=== PATIENT | female | born 1955 | race Caucasian/White ===

== ENCOUNTER 2019-08-07 01:23 | Observation (INO) | payer OTHER, SELFPAY ==
[2019-08-07] VITALS (8 sets, daily range): BP systolic 130–183; BP diastolic 63–90; PULSE 65–96; RESP 14–23; TEMP 36.6–36.8; O2SAT 97–100; BMI 28.3
--- NOTE | ~2019-08-07 | XR_ITS ---
XR ribs LT 2V w CXR 2V DATE: 08/07/2019 02:28 INDICATION: Anterior lower left rib pain TECHNIQUE: PA and lateral chest. 3 views of the left ribs. COMPARISON: 05/03/2019 2 view chest FINDINGS: Diffuse osteopenia. There is a subtle slightly displaced anterior left seventh rib fracture which appears recent. Degenerative spurring of the thoracic spine. Normal heart size. No hilar or mediastinal enlargement. There is minimal atelectasis at the lung bases. The lungs otherwise are clear of infiltrate or consol idation. No pleural effusion or pulmonary vascular congestion or pneumothorax. IMPRESSION: Recent minimally displaced anterior left seventh rib fracture Minimal atelectasis at the lung bases Diffuse osteopenia Reviewed, dictated and finalized at location A.
--- NOTE | 2019-08-07 01:41 | ED_ITS ---
I attest that this documentation has been prepared under the direction and in the presence of Kody Starks MD. Micky Lomax Scribe 08/07/19;01:41 HPI - General Adult General Chief complaint: Abdominal Pain Stated complaint: RUQ PAIN/SHOULDER PAIN Time Seen by Provider: 08/07/19 01:29 Related Data Home Medications Medication Instructions Recorded Confirmed valacyclovir 05/03/19 Allergies Allergy/AdvReac Type Severity Reaction Status Date / Time No Known Allergies Allergy Unknown Verified 08/07/19 01:34 [facility] Social History Social History Smoking status: Never smoker Second hand tobacco smoke exposure: Yes Alcohol intake: never Course Vital Signs Vital signs: Vital Signs Temperature 36.8 C 08/07/19 01:31 Pulse Rate 91 08/07/19 01:31 Respiratory Rate 23 H 08/07/19 01:31 Blood Pressure 183/90 H 08/07/19 01:31 Pulse Oximetry 100 08/07/19 01:31 Temperature 36.8 C 08/07/19 01:31 Pulse Rate 91 08/07/19 01:31 Respiratory Rate 23 H 08/07/19 01:31 Blood Pressure 183/90 H 08/07/19 01:31 Pulse Oximetry 100 08/07/19 01:31 Medical Decision Making Vital Signs Vital Signs: Vital Signs Temperature 36.8 C 08/07/19 01:31 Pulse Rate 91 08/07/19 01:31 Respiratory Rate 23 H 08/07/19 01:31 Blood Pressure 183/90 H 08/07/19 01:31 Pulse Oximetry 100 08/07/19 01:31 Temperature 36.8 C 08/07/19 01:31 Pulse Rate 91 08/07/19 01:31 Respiratory Rate 23 H 08/07/19 01:31 Blood Pressure 183/90 H 08/07/19 01:31 Pulse Oximetry 100 08/07/19 01:31 Discharge Plan Discharge Prescriptions: No Action valacyclovir 500 mg tablet RF: 0 azithromycin [Zithromax Z-Con] 250 mg tablet 250 mg PO DAILY 5 Days Qty: 6 RF: 0 albuterol sulfate [Ventolin HFA] 90 mcg/actuation HFA aerosol inhaler 2 puff INHALATION QID PRN (Reason: shortness of breath or wheezing) Qty: 18 RF: 0 prednisone 20 mg tablet 40 mg PO DAILY 5 Days Qty: 10 RF: 0
--- NOTE | 2019-08-07 01:51 | ED.CHESTPAIN ---
HPI - Chest Pain General Chief Complaint: Abdominal Pain Stated Complaint: RUQ PAIN/SHOULDER PAIN Time Seen by Provider: 08/07/19 01:29 Source: patient and RN notes reviewed Mode of arrival: ambulatory Limitations: no limitations History of Present Illness HPI narrative: Pt is a 64 y/o female who presents to the ED with c/o lt lower chest pain starting 2 days ago. She notes that she was really stretching to bend over and pick something up inside of her washing machine 2 days ago, when she felt a pop in her lt lower chest. Pt states that she has had pain in her lt lower chest ever since. She notes that her pain worsened into a constant pain around 22:30 yesterday. Pt describes her pain as burning, and states that her pain has begun to radiate into her lt shoulder and lt upper back. She notes that her pain is aggravated with deep breathing. Pt currently denies any ABD pain, fever, or chills. She states that she took Ibuprofen for her pain earlier this evening. Pt notes having a FHx of CAD and DVT. MD complaint: chest pain Onset (ago): day(s) (2) Timing of current episode: constant Onset: during exertion Pain location: left chest Pain radiation: back (lt upper back) and left shoulder Quality: burning Exacerbating factors: other (deep breathing) Associated symptoms: other (none) Treatment prior to arrival: other (Ibuprofen) Related Data Home Medications Medication Instructions Recorded Confirmed valacyclovir 05/03/19 Allergies Allergy/AdvReac Type Severity Reaction Status Date / Time No Known Allergies Allergy Unknown Verified 08/07/19 01:34 Review of Systems Review of Systems: All systems reviewed & are unremarkable except as noted in HPI and below Constitutional: Constitutional: Denies chills and Denies fever(s) Cardiovascular: Cardiovascular: Reports chest pain (lt lower chest pain radiating into lt shoulder and lt upper back) Gastrointestinal: Gastrointestinal: Denies abdominal pain PMFSH Past Medical History Medical History (Updated 08/07/19 @ 05:02 by Kody Starks MD) Hemorrhoids Hypertension Surgical History Surgical History No significant past surgical history Family History Family History (Updated 08/07/19 @ 04:52 by Alexandra Lagunas RN) Sibling DVT (deep venous thrombosis) Acute myocardial infarction Father DVT (deep venous thrombosis) Acute myocardial infarction Mother Lung cancer Social History Social History Smoking status: Never smoker Second hand tobacco smoke exposure: Yes Alcohol intake: never Exam Narrative: Exam Narrative: GENERAL: Well-appearing, well-nourished, and in no acute distress. HEAD: Normocephalic, atraumatic. ENT: Mucous membranes moist. CHEST: Clear to auscultation. No respiratory distress. Tender to palpation anterior chest wall inferior to the left breast. HEART: Regular rate and rhythm. No murmur heard. Normal peripheral pulses. ABDOMEN: Soft, nontender, nondistended, normal active bowel sounds. Back: No midline or paraspinal tenderness with palpation to thoracic region back. EXTREMITIES: Normal range of motion. No edema. SKIN: Warm, dry, no rash. NEURO: Alert and oriented x3. Course Course Emergency Course: Informed of results. Scant improvement in pain with morphine and no change with nitro. Discussed with Dr. Rangel, admit to [facility] for repeat trop at 3 and 6 hours. BP improved w/o intervention. Vital Signs Vital signs: Vital Signs Temperature 98.3 F 08/07/19 01:31 Pulse Rate 91 08/07/19 01:31 Respiratory Rate 23 H 08/07/19 01:31 Blood Pressure 183/90 H 08/07/19 01:31 Pulse Oximetry 100 08/07/19 01:31 Temperature 97.8 F 08/07/19 04:45 Pulse Rate 96 08/07/19 04:45 Respiratory Rate 20 08/07/19 04:45 Blood Pressure 151/76 H 08/07/19 04:45 Pulse Oximetry 97 08/07/19 04:45 MDM - Chest Pain Lab Data
[2019-08-07] MEDS: MORPHINE SULFATE 4 MG/ML INJ IV PUSH (02:03)
--- NOTE | 2019-08-07 02:05 | PC.NURSE ---
pt down to xray
[2019-08-07 02:11] LABS: Basophils Percent Auto 0.2 % (0.2-1.2); Eosinophils Absolute Auto 0.3 K/mm3 (0-0.3); Eosinophils Percent Auto 2.9 % (0-4.4); Hematocrit 41.6 % (37.0-47.0); Hemoglobin 13.3 g/dL (12.0-15.0); Immature Granulocyte Absolute 0.03 K/mm3 (0.00-0.031); Immature Granulocyte Percent A 0.3 % (0-0.5); Lymphocytes Absolute Auto 3.04 K/mm3 (0.9-3.2); Lymphocytes Percent Auto 34.8 % (18.3-44.2); Mean Corpuscular Hemoglobin 30.1 pg (26-34); Mean Corpuscular Volume 94.1 fl (80-100); Mean Platelet Volume 11.1 fl (7.4-10.4); Monocytes Absolute Auto 0.6 K/mm3 (0.1-0.6); Monocytes Percent Auto 6.8 % (2.6-8.5); Neutrophils Absolute Auto 4.8 K/mm3 (1.3-6.7); Platelet Count Result 229 k/mm3 (150-375); Red Blood Count 4.42 M/mm3 (4.2-5.4); Red Cell Distribution Width 13.2 % (11.5-14.5); White Blood Count 8.7 K/mm3 (4.5-10.0)
--- NOTE | 2019-08-07 02:19 | ECG_ITS ---
Measurements Intervals [place] Rate: 88 P: 55 SD: 151 QRS: 46 QRSD: 97 T: 42 QT: 362 QTc: 440 Interpretive Statements SINUS RHYTHM BORDERLINE ST ABNORMALITY- ANTEROLATERAL LEADS BASELINE ARTIFACT- V4-V5 BORDERLINE ECG Electronically Signed On 08-07-2019 7:09:37 CDT by Josias Ceballos D.O.
[2019-08-07 02:38] LABS: Prothrombin Time 12.5 Seconds (11.1-14.7)
[2019-08-07 02:39] LABS: Partial Thromboplastin Time 31.4 SECONDS (22.3-36.8)
[2019-08-07 02:41] LABS: Blood Urea Nitrogen 16 mg/dL (7-17); Calcium 9.5 mg/dL (8.4-10.2); Carbon Dioxide 28 mmol/L (22-30); Chloride 104 mmol/L (98-107); D Dimer 0.35 ug/mL (<0.48); Estimated Glomerular Filt Rate > 60; Glucose 102 mg/dL (65-105); Potassium 3.9 mmol/L (3.4-5.0); Sodium 137 mmol/L (137-145)
[2019-08-07 02:53] LABS: Troponin I < 0.012 ng/mL (0.000-0.034)
[2019-08-07] MEDS: NITROGLYCERIN SL 0.4 MG TABLET SUBLINGUAL (03:09)
[2019-08-07] MEDS: ASPIRIN 81 MG CHEWABLE TABLET 324 MG PO (03:48)
--- NOTE | 2019-08-07 04:56 | ECG_ITS ---
Measurements Intervals [place] Rate: 75 P: -1 AK: 165 QRS: 61 QRSD: 91 T: 46 QT: 383 QTc: 429 Interpretive Statements SINUS RHYTHM BASELINE ARTIFACT- I, II, III, AVR, AVL, AVF NORMAL ECG Electronically Signed On 08-07-2019 7:09:09 CDT by Josias Ceballos D.O.
[2019-08-07 06:00] LABS: Troponin I < 0.012 ng/mL (0.000-0.034)
--- NOTE | 2019-08-07 07:56 | ECG_ITS ---
Measurements Intervals [place] Rate: 67 P: 7 RI: 177 QRS: 58 QRSD: 91 T: 41 QT: 393 QTc: 418 Interpretive Statements SINUS RHYTHM NORMAL ECG Electronically Signed On 08-07-2019 8:19:32 CDT by Josias Ceballos D.O.
[2019-08-07 08:34] LABS: Troponin I < 0.012 ng/mL (0.000-0.034)
--- NOTE | 2019-08-07 12:01 | PM.SD ---
Same Day Admit/Disch: HPI History of Present Illness Chief complaint: atypical chest shoulder pain rib fracture <Mimi Martinez, SOCIAL SCIENCE RESEARCH ASSISTANT - Last Filed: 08/07/19 16:33> Narrative: Arianna Hillman is a 64 year old female that presented to the emergency room for evaluation of upper left posterior shoulder discomfort. On Monday she was leaning over her deep washer when she felt a pop and had some discomfort at the left lower ribs. She took some ibuprofen and this discomfort improved. Approximately 10:30 p.m. yesterday evening she began to experience upper left posterior shoulder and lower rib cage discomfort. The discomfort was worse with movement as well as deep inspiration. She described it as a sharp discomfort. She denied any associated shortness of breath or lightheadedness. She tried to get comfortable in bed but after about 2-1/2 hours her suggested that she come to the emergency room for evaluation. Troponin negative x3. Initial EKG had some nonspecific ST depression which resolved in subsequent EKGs. She was given nitroglycerin as well as morphine in the emergency room without any significant improvement. She states that approximately 4:00 a.m. she went to sleep on her right side and the discomfort completely resolved and was not present at the time of our interview. She did still has some tenderness chest x-ray revealed recent minimally displaced anterior left 7th rib fracture. Minimal atelectasis left lung base. Diffuse osteopenia. No further cardiac recommendations. She is discharged home in stable and improved condition. <Mimi Martinez, SOCIAL SCIENCE RESEARCH ASSISTANT - Last Filed: 08/07/19 16:33> Attestation by Dr. Rangel: Patient was admitted with left lower chest discomfort after hearing a pop , leaning over a washing machine as described by LONG Martinez. She also had some discomfort of the left posterior shoulder and upper back area. The emergency room doctor was concerned of left the depression. She few no risk factors for CAD except for family history. Has been having some trouble with blood pressure control recently.Otherwise she has been able to exert with no particular problems. Physical exam: Blood pressure, which was initially high, had improved. Patient no distress. No carotid bruits. Heart is regular rate and rhythm no murmurs or gallops, lungs clear, abdomen soft and nontender with no organomegaly and extremities with no edema. Distal pulses are intact. She does have chest wall tenderness over the right lower chest area. Laboratory data: EKG shows sinus rhythm with right consider are nonspecific ST changes laterally. Chest x-ray and rib detail as above, fracture of the anterior 7th rib noted, as well as osteopenia. Labs reviewed Impression: Chest pain secondary to rib fracture, no evidence of cardiac issue. Nonspecific EKG changes Osteopenia High blood pressure reading Recommendations: Tylenol and Advil , chest binder p.r.n. Follow-up with Dr. Tiwari to check blood pressure and see if patient needs further evaluation and treatment of osteopenia / osteoporosis. Nandini Rangel MD <Heather Rangel MD - Last Filed: 08/07/19 18:03> [facility] Past Medical History Medical History: Medical History (Updated 08/07/19 @ 16:24 by Mimi Martinez APRN) Hemorrhoids <Mimi Martinez APRN - Last Filed: 08/07/19 16:33> Surgical History Surgical History: Surgical History No significant past surgical history <Mimi Martinez APRN - Last Filed: 08/07/19 16:33> Family History Family History: Family History Sibling DVT (deep venous thrombosis) Acute myocardial infarction Father DVT (deep venous thrombosis) Acute myocardial infarction Mother Lung cancer <Mimi Martinez APRN - Last Filed: 08/07/19 16:33> Social History Social History: Social History (Reviewed 08/07/19 @ 16:24 by Sal Vásquez
== END 2019-08-07 12:25 | disposition home or self-care (01) ==
LOC: ANHED 01:29 → ANHIMU 04:08 → ANHCPC 07:58
PROVIDERS: Admitting Provider Internal Medicine Cardiovascular Disease; Emergency Provider Emergency Medicine; PCP Family Medicine; Visit Provider Internal Medicine Cardiovascular Disease
DX: S22.32XA Fracture of one rib, left side, initial encounter for closed fracture (principal); X50.1XXA Overexertion from prolonged static or awkward postures, initial encounter; Y93.E2 Activity, laundry; R07.89 Other chest pain; M85.88 Other specified disorders of bone density and structure, other site; I10 Essential (primary) hypertension; Z82.49 Family history of ischemic heart disease and other diseases of the circulatory system
CPT/HCPCS: 36415; 71045; 71101; 80048; 84484; 85025; 85380; 85610; 85730; 93005; 96374; 99285; A9270; G0378; J2270

== ENCOUNTER → 2020-01-31 10:06 | Outpatient (CLI) | payer OTHER, SELFPAY ==
--- NOTE | ~2020-01-31 | XR_ITS ---
EXAMINATION: XR knee LT 3V DATE: 01/31/2020 10:45 INDICATION: Left knee pain. TECHNIQUE: 3 views of left knee were obtained. COMPARISON: None. FINDINGS: Bone alignment is normal. No fracture. There is moderate osteoarthritis of medial compartme nt and mild osteoarthritis of lateral and patellofemoral compartments. There is a small knee joint ef fusion. There is a 3 mm loose body in the knee joint. Small loose bodies posterior to the knee may be in a Jessica's cyst. IMPRESSION: 1. Moderate left knee osteoarthritis. 2. Small left knee joint effusion with loose body. Reviewed, dictated and finalized at location A.
== END ==
PROVIDERS: PCP Family Medicine; Visit Provider Physician Assistant
DX: M25.462 Effusion, left knee (principal); M17.12 Unilateral primary osteoarthritis, left knee
CPT/HCPCS: 73562

== ENCOUNTER 2022-09-28 01:45 | Day surgery (SDC) | payer MEDICARE, SELFPAY ==
[2022-09-15 13:45] VITALS: BMI 26.6
--- NOTE | 2022-09-27 14:23 | PM.HPGS ---
History of Present Illness History of Present Illness Consent: Risks, benefits, and alternatives have been discussed and questions answered. Patient agrees to proceed with procedure. Chief complaint: neoplasm screening Narrative: Arianna Hillman is a 67 year old female referred for colon cancer screening. Review of Systems Review of Systems: All systems reviewed & are unremarkable except as noted in HPI and below PMFSH Past Medical History Medical History Hemorrhoids Surgical History Surgical History No significant past surgical history Family History Family History Sibling DVT (deep venous thrombosis) Acute myocardial infarction Father DVT (deep venous thrombosis) Acute myocardial infarction Mother Lung cancer Social History Social History Smoking status: Never smoker Second hand tobacco smoke exposure: No Alcohol intake: current Alcohol use details: rarely Substance use: never Substance use type: does not use Lack of Transportation: No Lack of Food: Never True Current Housing: I Have Housing Concerned About Future Housing: No Difficulty Paying Gas/Electric Bills: No Difficulty Paying for Meds: No Currently Unemployed: No Education: Bachelor's Degree Difficulty w/ Childcare or Family Care: No Living arrangements: with family Spiritual care concerns: No Meds Home Medications and Allergies Home Medications Medication Instructions Recorded Confirmed Type valacyclovir 500 mg tablet 500 mg PO DAILY 05/03/19 09/15/22 History antiarthritic combination no.2 900 900 mg PO DAILY 11/11/20 09/15/22 History mg tablet (glucosamine-chondroitin) cholecalciferol (vitamin D3) 50 50 mcg PO DAILY 11/11/20 09/15/22 History mcg (2,000 unit) capsule Allergies Allergy/AdvReac Type Severity Reaction Status Date / Time No Known Allergies Allergy Unknown Verified 09/28/22 06:25 Exam Const: General: alert Orientation/consciousness: patient oriented x3 Resp: Auscultation: clear to auscultation bilaterally Cardio: Rhythm: regular rhythm GI: GI Palp: Yes Soft to palpation and No Tenderness to palpation present (GI) Neuro: General: patient oriented x3 Assessment and Plan Assessment and plan (1) Colon cancer screening: Code(s): Z12.11 - Encounter for screening for malignant neoplasm of colon Status: Acute Assessment and Plan: Colonoscopy with possible biopsy or polypectomy or cautery or injection of substances.
[2022-09-28 06:31] VITALS: BP 152/81; PULSE 80; RESP 16; TEMP 36.1; O2SAT 99
[2022-09-28] MEDS: LACTATED RINGERS 1,000 ML 150 ML IV CONT (06:37)
--- NOTE | 2022-09-28 07:05 | WPDANESEPPF ---
Anes - Initial Pre Proc Eval Procedure: Operation Date: 09/28/22 07:30 Proposed Procedures p Screening Colonoscopy - Miguel Pandey MD Date/Time: 09/28/22 07:05 Surgeon: Miguel Pandey MD Pre Op Diagnosis: neoplasm screening Patient Data Age: 67 Gender: F Height: 1.68 m Weight: 73.4 kg Last Vital Signs Temp 36.1 C L 09/28/22 06:31 Pulse 80 09/28/22 06:31 Resp 16 09/28/22 06:31 BP 152/81 H 09/28/22 06:31 Pulse Ox 99 09/28/22 06:31 O2 Del Method Room Air 09/28/22 06:31 Allergies Allergy/AdvReac Type Severity Reaction Status Date / Time No Known Allergies Allergy Unknown Verified 09/28/22 06:25 Home Medications Medication Instructions Recorded Confirmed Type valacyclovir 500 mg tablet 500 mg PO DAILY 05/03/19 09/15/22 History antiarthritic combination no.2 900 900 mg PO DAILY 11/11/20 09/15/22 History mg tablet (glucosamine-chondroitin) cholecalciferol (vitamin D3) 50 50 mcg PO DAILY 11/11/20 09/15/22 History mcg (2,000 unit) capsule Patient hx anesthesia problems: none Family hx anesthesia problems: none Results Review: All pre-operative results and documents have been reviewed as part of the pre-operative evaluation. [facility] Past Medical History Medical History Hemorrhoids Surgical History Surgical History No significant past surgical history Family History Family History Sibling DVT (deep venous thrombosis) Acute myocardial infarction Father DVT (deep venous thrombosis) Acute myocardial infarction Mother Lung cancer Social History Social History Smoking status: Never smoker Second hand tobacco smoke exposure: No Alcohol intake: current Alcohol use details: rarely Substance use: never Substance use type: does not use Lack of Transportation: No Lack of Food: Never True Current Housing: I Have Housing Concerned About Future Housing: No Difficulty Paying Gas/Electric Bills: No Difficulty Paying for Meds: No Currently Unemployed: No Education: Bachelor's Degree Difficulty w/ Childcare or Family Care: No Living arrangements: with family Spiritual care concerns: No Anes - Eval Final PreProcedure Day of Procedure 09/28/22 07:05 Patient weight: overweight Heart: regular rate and rhythm Lungs: clear to auscultation and normal air movement Airway: Mallampati scale class II Neurological: alert and oriented Last oral intake: >/= 8 hours ASA classification: II Emergent: no Anesthetic plan: proceed Anesthesia type and monitoring: general GIVS Results Review: All pre-operative results and documents have been reviewed as part of the pre-operative evaluation. Informed Consent: The patient's anesthetic plan and its attendant risks and benefits were discussed with the patient/family/POA. Questions were solicited and answers provided to the satisfaction of the patient/family/POA.
[2022-09-28 07:38] VITALS: BP 143/74; PULSE 70; RESP 20; O2SAT 100
[2022-09-28 07:48] VITALS: BP 160/89; PULSE 73; RESP 16; O2SAT 100
[2022-09-28 07:58] VITALS: BP 158/89; PULSE 70; RESP 20; O2SAT 100
== END 2022-09-28 08:06 | disposition home or self-care (01) ==
PROVIDERS: PCP Family Medicine; Visit Provider Internal Medicine Gastroenterology
PROC: 0DJD8ZZ Inspection of Lower Intestinal Tract, Via Natural or Artificial Opening Endoscopic (ICD-10-PCS; CPT 45378; principal; 2022-09-28 07:30)
DX: Z12.11 Encounter for screening for malignant neoplasm of colon (principal); Z80.0 Family history of malignant neoplasm of digestive organs
CPT/HCPCS: G0105; J2704; J7120

== ENCOUNTER 2022-12-02 14:39 | Outpatient (CLI) | payer MEDICARE, SELFPAY ==
--- NOTE | ~2022-12-02 | MM_ITS ---
EXAMINATION: MM screening [facility] BI w josh HISTORY: Screening mammogram TECHNIQUE: Craniocaudal and mediolateral oblique 3-D tomosynthesis images were obtained and synthetic 2-D images were generated. CAD analysis was submitted and interpreted. COMPARISON: 01/11/2018, 11/10/2016, 10/31/2016 BREAST PARENCHYMAL COMPOSITION: There are scattered areas of fibroglandular density. FINDINGS: No suspicious mass, calcification, or architectural distortion are identified in either jorge alberto ast to suggest malignancy. There has been no suspicious interval change. IMPRESSION: 1. No mammographic evidence of malignancy. 2. Recommend routine screening mammography in one year. BI-RADS Category 1: Negative Reviewed, dictated and finalized at location A.
--- NOTE | ~2022-12-02 | DEXA_ITS ---
Bone Density Report Name: LUANNE MORAN Age: 67 Sex: Female Ethnicity: White Date of : 1955 Indication: postmenopausal; screening for osteoporosis; height loss; prior fracture; Referring Provider: COURTNEY RODRIGUEZ Study: Bone densitometry was performed. Exam Date: December 02, 2022 Accession number: [id number] Bone Density: Region BMD T-score Z-score Classification AP Spine(L1, L2, L3) 0.928 -0.8 1.0 Normal Femoral Neck (Left) 0.664 -1.7 -0.1 Osteopenia Total Hip (Left) 0.807 -1.1 0.2 Osteopenia Femoral Neck (Right) 0.670 -1.6 0.0 Osteopenia Total Hip (Right) 0.779 -1.3 0.0 Osteopenia Total Hip Mean 0.793 -1.2 0.1 Osteopenia World Health Organization criteria for BMD impression classify patients as: Normal (T-score at or above -1.0), Osteopenia (T-score between -1.0 and -2.5), or Osteoporosis (T-score at or below -2.5). 10-year Fracture Risk(1): Major Osteoporotic Fracture 16% Hip Fracture 1.9% Reported Risk Factors: [place] (), Neck BMD=0.664, BMI=27.5, previous fracture (1) FRAX(R) Version 3.08. Fracture probability calculated for an untreated patient. Fracture probability may be lower if the patient has received treatment. Clinical Information Provided by Patient: Has had a low trauma fracture Has used the following medications: Vitamin D Patient maximum height was 66 Menopause Age: 54 No regular weight bearing exercise Onset of menses at age 14 Number of children 5 Impression: The patient has low bone mass, based on the Left Femoral Neck T-score. The patient has an estimated ten-year risk of hip fracture of 1.9% and an estimated ten-year risk of major fracture of 16%, based on the WHO FRAX algorithm. The patient has risk factors, including: previous fracture. Discussion: BONE DENSITY IS LOW AT ONE OR MORE SKELETAL SITES. This patient's lowest T-score is low at one or more skeletal sites. It meets the World Health Organization's (WHO) criteria for ?low bone mass? (T-score between -1.0 and -2.5). The patient's 10-year risk of fracture as calculated by FRAX is less than the threshold where pharmacological therapy is recommended by the National Osteoporosis Foundation (NOF). However, all treatment decisions require clinical judgment and consideration of individual patient factors, including patient preferences, comorbidities, previous drug use, risk factors not captured in the FRAX model (e.g., frailty, falls, vitamin D deficiency, increased bone turnover, interval significant decline in bone density) and possible under or overestimation of fracture risk by FRAX. The patient should follow a healthful lifestyle (good nutrition with adequate calcium and vitamin D, and appropriate weight-bearing exercise). Follow-Up: Consider repeating this study in 2 to 3 years to reas
== END 2022-12-02 14:40 | disposition home or self-care (01) ==
LOC: ANHIMG 14:41
PROVIDERS: PCP Family Medicine; Visit Provider Physician Assistant
DX: Z12.31 Encounter for screening mammogram for malignant neoplasm of breast (principal); Z78.0 Asymptomatic menopausal state; M85.852 Other specified disorders of bone density and structure, left thigh; M85.851 Other specified disorders of bone density and structure, right thigh
CPT/HCPCS: 77063; 77067; 77080

== ENCOUNTER 2024-06-18 15:26 | Outpatient (CLI) | payer MEDICARE, SELFPAY ==
--- NOTE | ~2024-06-18 | MM_ITS ---
EXAMINATION: MM screening [facility] BI w josh HISTORY: Screening TECHNIQUE: Craniocaudal and mediolateral oblique 3-D tomosynthesis images were obtained and synthetic 2-D images were generated. CAD analysis was submitted and interpreted. COMPARISON: Comparison to multiple prior studies sequentially, with oldest reviewed study dated 09/2016. BREAST PARENCHYMAL COMPOSITION: There are scattered areas of fibroglandular density. FINDINGS: There is no evidence of suspicious mass, calcification, or architectural distortion to sugg est malignancy in either breast. There has been no suspicious interval change. IMPRESSION: 1. No mammographic evidence of malignancy. 2. Recommend routine screening mammography in one year. BI-RADS Category 1: Negative Reviewed, dictated and finalized at location A. MONIA NITRATE OPERATOR
--- OUTSIDE RECORDS SUMMARY | 2024-06-20 19:49 | XMS_ITS | Clinical Summary ---
Author Organization [facility] depict Address [address] [place] [address] Care Team Providers Care Hand Spring Former Name Role Phone Unknown, Provider Primary Care Provider Unavaila ble Source Comments [facility],non-owned Affiliates and Associated Physician Practices is amultiple site organization consisting of ambulatory clinics and hospital sitesin [place], [place], [place] and [place]. This disclosure is being madepursuant to the Care Everywhere program and may not contain all information available regarding this patient. Last updated 18.[facility] depict Allergies No known active allergies Immunizations Name Administration Dates Next Due FLU VACCINE QUAD IIV4 PF ID 03/04/2016 INFLUENZA VACCINE, QUADR. (F LUZONE; FLULAVAL; FLUARIX; AFLURIA QUADRIVALENT; 6MO+), 0.5 ML (IIV4) 03/06/2020,03/12/2019 iNFLUENZA VACCINE, RECOM-LIVE, QUADR. (FLUBLOCK QUADRIVALENT; 18Y+) (RIV4) 2018 Social History Tobacco Use Types Packs/Day Years Used Date Smoking Tobacco: Never Assessed Sex and Gender Information Value Date Recorded Sex Assigned at Not on file Gender Identity Not on file Sexual Orientation Not on file Plan of Treatment Health Maintenance Due Date Last Done Comments BONE DENSITY TESTING 1955 COLOGUARD (AGES 45-75) - COLON CA SCREENING 1956 COLON MONITORING 1956 COLONOSCOPY - COLON CA SCREENING 1956 CT COLONOGRAPHY - COLON CA SCREENING 1956 Colorectal Cancer Screening 1956 FIT - COLON CA SCREENING 1956 FLEX SIG - COLON CA SCREENING 1956 LIPID TESTING 1956 MAMMOGRAM 1956 HEPATITIS C SCREENING 04/30/1974 DTAP/TDAP/TD VACCINES (1 - Tdap) 1975 PNEUMOCOCCAL VACCINE 50+ (1 of 1 - PCV) 2006 ZOSTER VACCINE (1 of 2) 2006 COVID-19 VACCINE (1 - 2023- season) 2024 INFLUENZA VACCINE (#1) 2024 0, 03/12/2019, 2018, Additional history exists DEPRESSION SCREENING 05/29/2024 Respiratory Syncytial Virus (RSV) Vaccine Pt: or over 60 yrs (1 - 1-dose 75+ series) 2031 HEPATITIS B VACCINE Aged Out No longe r eligible based on patient's age to complete this topic HIB VACCINE Aged Out No longer eligi ble based on patient's age to complete this topic HPV VACCINE Aged Out No longer eligi ble based on patient's age to complete this topic MENINGOCOCCAL (Group B) VACCINE Aged Out No longer eligible based on patient's age to complete this topic MENINGOCOCCAL VACCINE Aged Out No salma denilson eligible based on patient's age to complete this topic Care Teams Hand Spring Former Relationship Specialty Start Date End Date Unknown, Provider PCP - General 03/04/16
--- OUTSIDE RECORDS SUMMARY | 2024-06-20 19:49 | XMS_ITS | Referral Summary ---
Author Organization [facility] Address [address] [place] [address] Care Team Providers Care Flotation Operator Name Role Phone Unknown, Provider Primary Care Provider Unavaila ble Source Comments [facility],non-owned Affiliates and Associated Physician Practices is amultiple site organization consisting of ambulatory clinics and hospital sitesin [place], [place], [place]. This disclosure is being madepursuant to the Care Everywhere program and may not contain all information available regarding this patient. Last updated 18.[facility] [employer] Allergies No known active allergies Immunizations Name [...] Orientation Not on file Plan of Treatment Not on file Care Teams Flotation Operator Relationship Specialty Start Date End Date Unknown, Provider PCP - General 03/04/16
--- OUTSIDE RECORDS SUMMARY | 2024-06-20 19:49 | XMS_ITS | Encounter Summary ---
Author Organization [facility] Healthcare Address [address] [place] [address] Care Team Providers Care Animal Husbandry Teacher Name Role Phone Lillian Tiwari MD Primary Care Provider [phone] Reason for Visit * Auth/Cert Specialty Diagnoses / Procedures Referred By Nahid t Referred To Contact Diagnoses Arthrofibrosis of knee joint, left Arthrofibrosis of knee joint, left [M24.662] Procedures [place] MANIPULATION KNEE JOINT UNDER GENERAL ANESTHESIA [place] ARTHROCENTESIS ASPIR&/INJ MAJOR JT/BURSA W/O US MANIPULATION LEFT KNEE STEROID INJECTION Referral ID Status Reason Start Date Expiration Date Visits Re quested Visits Authorized [id number] 1 1 Encounter Details Date Type Department Care Team (Late st Contact Info) Description 10/24/[address] [facility] Operating Room [address] [place] [address] Gavin Hidalgo MD [address] [place] [address] Social History Tobacco Use Types Packs/Day Years Used Date Smoking Tobacco: Never Smokeless Tobacco: Never AUDIT-C Answer Date Recorded Q1: How often do you have a drink containing alc ohol? Monthly or less 06/11/2024 Q2: How many drinks containi ng alcohol do you have on a typical day when you are drinking? 1 or 2 06/11/2024 Q3: How often do you have si x or more drinks on one occasion? Never 06/11/2024 Personal Safety Answer Date Recorded Have you ever been in or are you currently in a harmful physical or emotional relationship or is someone making you feel afraid or unsafe? Denies 06/11/2024 Comments No Sex and Gender Information Value Date Recorded Sex Assigned at Not on file Legal Sex Female 6:26 AM AERIAL SPRAYER Gender Identity Female 11/05/2021 3:12 PM CDT Sexual Orientation Straight 11/05/2021 3: 12 PM CDT Occupation Industry Job Start Date Job End Date Retired Not on file Not on file Not on file documented as of this encounter Last Filed Vital Signs Vital Sign Reading Time Taken Comments Blood Pressure - - Pulse - - Temperature - - Respiratory Rate - - Oxygen Saturation - - Inhaled Oxygen Concentration - - Weight 70.3 kg (155 lb) 10/20/2023 1:55 PM CDT Height 167.6 cm (5' 6 ) 10/20/2023 1:55 PM CDT Body Mass Index 25.02 10/20/2023 1:55 PM CDT documented in this encounter Miscellaneous Notes * Perioperative Nursing Note - Ye Bridges RN - 10/20/2023 2:00 PM CDT [facility] Perioperative Nursing Note Telephone Preoperative Evaluation ([facility]) - TELEPHONE ONLY, NO PHYSICAL EXAM Date: 10/20/23 This assessment was completed with the patient. Vitals: 10/20/23 1355 Weight: 70.3 kg (155 lb) Height: 167.6 cm (5' 6 ) CHEST CIRCUMFERENCE: Social History Tobacco Use Smoking Status Never Smokeless Tobacco Never Substance and Sexual Activity Drug Use Never Alcohol Use Q1: How often do you have a drink containing alcohol?: Monthly or less Q2: How many drinks containing alcohol do you have on a typical day when you are drinking?: 1 or 2 Q3: How often do you have six or more drinks on one occasion?: Never Outpatient Medications Marked as Taking for the 10/24/23 encounter (Hospital Encounter) Medication Sig Dispense Refill calcium carbonate/vitamin D3 (CALCIUM 600 + D,3, ORAL) Take 1 tablet by mouth nightly lisinopriL (PRINIVIL,ZESTRIL) 10 mg tablet Take 1 tablet (10 mg total) by mouth nightly valACYclovir (VALTREX) 500 mg tablet Take 1 tablet (500 mg total) by mouth nightly Implants Bone Cement [employer] Simplex P Full Dose Radiopaque Preblend Cement Bone Tobramycin 6197-9-010 - Sna - [id number] - Implanted (Left) Knee Inventory item: [employer] Simplex P Full Dose Radiopaque Preblend Cement Bone [id number] Model/Cat number: [id number] Serial number: NA Second Baker: [employer] Lot number: [id number] As of 07/20/2023 Status: Implanted [employer] Simplex P Full Dose Radiopaque Preblend Cement Bone Tobramycin 6197-9-010 - Sna - [id number] - Implanted (Left) Knee Inventory item: [employer] Simplex P Full Dose Radiopaque Preblend Cement Bone [id number] Model/Cat number: [id number] Serial number: NA Second Baker: [employer] Lot number: [id number] As of 07/20/2023 Status: Implanted [employer] Simplex P Full Dose Radiopaque Preblend Cement Bone Tobramycin 6197-9-010 - Sna - [id number] - Implanted (Left) Knee Inventory item: [employer] Simplex P Full Dose Radiopaque Preblend Cement Bone [id number] Model/Cat number: [id number] Serial number: NA Second Baker: [employer] Lot number: [id number] As of 07/20/2023 Status: Implanted Other - see comments [employer] Attune Cemented Cruciate Retaining Knee Left 6 Component Femoral [id number] -Sna - [id number] - Implanted (Left) Knee Inventory item: [employer] Attune Cemented Cruciate Retaining Knee Left 6 Component Femoral [id number] Model/Cat number: [id number] Serial number: NA Second Baker: [employer] Lot number: [id number] Device identifier: [id number] Device identifier type: GS1 As of 07/20/2023 Status: Implanted [employer] Attune S+ Cement Fix Bearing Knee 5 Baseplate Tibial [id number] - Sna - [id number] - Implanted (Left) Knee Inventory item: [employer] Attune S+ Cement Fix Bearing Knee 5 Baseplate Tibial [id number] Model/Cat number: [id number] Serial number: NA Second Baker: [employer] Lot number: [id number] Device identifier: [id number] Device identifier type: GS1 As of 07/20/2023 Status: Implanted [employer] Insert Attune Left Medial Stabilized Size 6 8mm [id number] - Sna - [id number] - Implanted (Left) Knee Inventory item: [employer] INSERT ATTUNE LEFT MEDIAL STABILIZED SIZE 6 8MM [id number] Model/Cat number: [id number] Serial number: NA Second Baker: [employer] Lot number: [id number] Device identifier: [id number] Device identifier type: GS1 As of 07/20/2023 Status: Implanted SKIN Piercings Remaining: No Wound (LDAs) Type of Wound (LDA): (NONE) SCREENINGS Maria Esther index score: 100 NUTRITION PATIENT CARE PLANNING Advance Directives (For Healthcare) Have you reviewed your Advance Directive and is it valid for this stay?: Yes Advance Directive: Patient has advance directive, copy in chart Type of Healthcare Directive: Durable power of regulatory attorney for health care, Health care treatment directive Communication/Section Forest Fire Warden Needs Communication Needs: None Does caregiver's language differ from patient's?: No Assistive Devices/DME: None Hearing - Right Ear: Functional Hearing - Left Ear: Functional Discharge Planning Type of Residence: Private residence Living Arrangements: Spouse/significant other Support Systems: Spouse/significant other Patient expects to be discharged to:: Private residence 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 Arrival time and surgical time will be provided to the patient by their surgeon. You should wear clothing that is clean, loose, comfortable and easy to get in and out of on the dayof surgery. You should remove nail coverings, artificial nails and nail hungarian prior to the day of surgery. You should leave your valuables and any jewelry at home. No metal or piercings are allowed in the operating room. You should bring your insurance card, a photo ID (example: Zinc Plate Cutter's License) and a method of payment for any insurance copay, deductible or copay for discharge medications. You should bring a complete, up-to-date, list of all your medications on the day of surgery, including any over the counter medications or supplements you may take. Please note on your medication list, the last date & time you took each medication. The healthcare team, on the day of surgery, will ask for this information. You should bring your Advanced Directive and/or Living Will with you on the day of surgery if you have not verified a copy is already in your Epic Chart. If you are having surgery at [facility], please arrive on the day of surgery with the name and phone number of your local 24 hour pharmacy. Due to evening discharges, your routine pharmacy may be closed. In order to obtain your prescriptions that evening, your surgeon may need to send prescriptions to this pharmacy or have you take prescriptions to this pharmacy when you are discharged. Without this information, you may not be able to obtain your prescriptions that evening. A Guide for Patients Having Surgery: Your Pathway to Excellent Care OUR GOAL IS TO PROVIDE YOU WITH EXCELLENT CARE Use this guide to learn about what you can do before, during and after surgery to help your recovery. You are the most important person on your health care team. By becoming informed and involved, you can contribute to the success of your surgery. If your surgeon's directions are different than those in this guide, talk with your nurse or surgeon to confirm the information. It is important that you understand how to take care of yourself at home after surgery. Be sure to bring this guide with you on the day of surgery and take it home with you after surgery. Write down questions for your nurse or surgeon on the last page of this booklet. Important pages to be reviewed BEFORE surgery: Page 1: QR codes for Surgery Center maps Page 3: Types of Anesthesia Page 5: Tips for the day & night before surgery Page 6: When to stop eating BEFORE surgery and examples of clear liquids Page 7-10: Preventing Infection: Chlorhexidine Gluconate (CHG) Bathing Instructions You may access A Guide for Patients Having Surgery: Your Pathway to Excellent Care by the followinglink: [email or web address] How To Prepare Your Skin For Surgery Below is the Pre-Surgical Bathing Protocol you should follow for your surgery. If your surgeon provides you different bathing instructions, please follow your surgeon's orders. Normal Bathing: Bathe with regular soap the night before and/or day of surgery. Normal Bathing Protocol Bathe with your normal soap the night before and/or the morning of surgery. Wear clean clothes or pajamas to sleep in. After showering DO NOT put on deodorant, hair products, conditioners, lotions, creams, powders, Vaseline or any non-essential products. Remove nail coverings, artificial nails and nail hungarian. Place clean linens on your bed the night before surgery. Shaving: You may shave your face, legs and underarms during your evening shower. Avoid shaving on the day of surgery. Travel/Exposure Screening: Travel Screening Have you traveled outside the [place] in the last 6 months?: No Exposure Screening Have you been exposed to anyone who is sick in the last 30 days?: No Have you been exposed to or tested positive for COVID-19 within the last 10 days?: No Infectious Disease Screening Are you having any of the following:: None As of 03/22/2022 any COVID TESTING required for surgery will be set up by your surgeon's office. Please reach out to your surgeon's office if you develop any COVID symptoms, test positive for COVID or are exposed to a COVID positive person. If you have questions, please call the [facility] Staff at [phone], Monday-Monday 8am-4:30pm. All patients should read the below section: COVID 19 Updates & Visitor Policy: Please access [email or web address] for the most updated information. Information on [facility] or [facility] ([facility]): Please view [email or web address] (Patient and Visitor Information) for parking/directions and more. For MyChart information, to activate account or password recovery, please go to [email or web address] or call [phone] (toll-free: [phone]), Mon- Monday 8am-5pm. Information for Suicide Prevention: National Suicide Prevention Lifeline (8-316- 883-IVUD (4652)) or call or text 206. Chat resources: UniSmartline.org. Surgery Times: For patients having surgery @ [facility], if your surgeon's office has not notified you of your surgery time by 2pm THE BUSINESS DAY BEFORE your surgery, please call the surgery center at [phone] and ask for your surgeon's office . The [facility] ([facility]) does not provide arrival times for theday of surgery or provide the duration of surgery. This information is provided by your surgeon's office or by the center where you are having surgery. We appreciate your understanding. documented in this encounter Plan of Treatment Upcoming Encounters Date Type Department Care Team (Latest Contact Info) Description 07/09/2024 8:50 AM AERIAL SPRAYER Hospital Encounter [facility] Operating Room [address] [place] [address] Gavin Hidalgo MD [address] [address] 07/09/2024 8:50 AM AERIAL SPRAYER Anesthesia Event [facility] [address] [address] Elvi Villalta, FAST FOOD COOK [phone] [place] [address] 07/09/2024 8:50 AM AERIAL SPRAYER - 07/09/2024 11:20 AM AERIAL SPRAYER Surgery [facility] Room [address] [address] [address] Gavin Hidalgo MD [address] [address] ARTHROPLASTY TOTAL KNEE Scheduled Procedures Name Priority Associated Diagnoses Date/Ti me ARTHROPLASTY TOTAL KNEE Primary osteoarthritis of right knee 07/09/2024 8:50 AM AERIAL SPRAYER documented as of this encounter Visit Diagnoses Diagnosis Arthrofibrosis of knee joint, left- Primary Primary osteoarthritis of right knee- Primary Primary osteoarthritis of right knee documented in this encounter Admitting Diagnoses Diagnosis Arthrofibrosis of knee joint, left documented in this encounter Care Teams Animal Husbandry Teacher Relationship Specialty Start Date End Date Lillian Tiwari MD PCP - General Family Medicine 08/07/19 documented as of this encounter
--- OUTSIDE RECORDS SUMMARY | 2024-06-20 19:49 | XMS_ITS | Clinical Summary ---
Author Organization [facility] [address] Address [address] [place] [address] Care Team Providers Care Medical Instructor Name Role Phone Lillian Tiwari MD Primary Care Provider [phone] Allergies No known active allergies Medications valACYclovir (VALTREX) 500 mg tabletIndicatio ns:Prophylaxis, Medical,cold sores Take 1 tablet (500 mg total) by mouth nightly 05/29/2017 Active lisinopriL (PRINIVIL,ZESTR IL) 10 mg tabletIndicatio ns:hypertension Take 1 tablet (10 mg total) by mouth nightly 12/06/2022 Active calcium carbonate/vitam in D3 (CALCIUM 600 + D,3, ORAL)Indication s:SUPPLEMENT Take 1 tablet by mouth nightly 01/27/2023 Active Active Problems Problem Noted Date Diagnosed Date Primary osteoarthritis of right knee 02/28/2024 Arthrofibrosis of knee joint, left 10/20/2023 Osteoarthritis of left knee, unspecified osteoarthritis type 07/20/2023 Primary osteoarthritis of left knee 05/15/2023 Encounters Date Type Department Care Team Description 06/11/2024 10:30 AM [facility] [place] [facility] Lab [facility] [address] [address] Primary osteoarthritis of right knee; Pre-op testing; Vitamin D deficiency 06/11/2024 9:30 AM CHEF DE CUISINE Pre-Admission Testing [facility] Pre-Anesthesia Testing [address] [address] from Last 3 Months Immunizations Name Administration Dates Next Due Influenza, Quadrivalent, Rec ombinant, Egg Free, Preservative Free, Intramuscular 2018 Influenza, Quadrivalent, Spl it, Preservative Free, Intramuscular 03/04/2021,03/06/2020,03/12/2019 Influenza, Trivalent, IM (MDV) 03/09/2014,2012 Influenza, Trivalent, Preser vative Free, Intramuscular 04/01/2015 Td, adsorbed 07/14/1999 Tdap 11/27/2009 Surgical History Surgery Date Site/Laterality Comments COLONOSCOPY 05/29/2022 - 05/28/2023 KNEE ARTHROPLASTY 06/29/2023 - 07/27/2023 Left Medical History Medical History Date Comments Arthritis 10/2019 Obesity Hypertension August 2022 Family History Medical History Relation Name Comments Arthritis Brother 1 Ned Heart attack Brother 1 Ned Heart disease Brother 1 Ned Arthritis Brother 2 Cleve Clotting disorder Brother 3 Yahir Arthritis Father Cyril Clotting disorder Father Cyril Heart attack Father Cyril Heart disease Father Cyril Hypertension Father Cyril Cancer Mother Annie Hypertension Mother Annie Anesthesia problems Neg Hx Relation Name Status Comments Brother 1 Ned Brother 2 Cleve Brother 3 Yahir Father Cyril Mother Annie Social History Tobacco Use Types Packs/Day Years [...] on file Legal Sex Female 6:26 AM CHEF DE CUISINE Gender Identity Female 11/05/2021 3:12 PM CDT Sexual Orientation Straight 11/05/2021 3: 12 PM CDT Occupation Industry Job Start Date Job End Date Retired Not on file Not on file Not on file Obstetrics History Last Filed Vital Signs Vital Sign Reading Time Taken Comments Blood Pressure 121/69 06/11/2024 9:49 AM [facility] Pulse 72 06/11/2024 9:42 AM [facility] [place] [facility] Temperature 36.9 ??C (98.4 ??F) 07/20/2023 12:[address] Respiratory Rate 16 06/11/2024 9:42 AM [facility] [place] [facility] Oxygen Saturation 99% 06/11/2024 9:42 AM [facility] [place] [facility] Inhaled Oxygen Concentration - - Weight 71.7 kg (158 lb) 06/11/2024 9:42 AM [facility] Height 167.6 cm (5' 6 ) 06/11/2024 9:42 AM [facility] [place] [facility] Body Mass Index 25.5 06/11/2024 9:42 AM [facility]F DE CUISINE Plan of Treatment Upcoming Encounters Date Type Department Care Team (Latest Contact Info) Description 07/09/2024 8:50 AM [facility] DE [facility]INE Hospital Encounter [facility] [address] [place] [address] Gavin Hidalgo MD [address] [place] [address] 07/09/2024 8:50 AM [facility] [place] [facility] Anesthesia Event [facility] [address] [address] Elvi Villalta, DOCK MANAGER [phone] [place] [address] 07/09/2024 8:50 AM CHEF DE CUISINE - 07/09/2024 11:20 AM [facility]F DE [facility] Surgery [facility] [address] [address] Gavin Hidalgo MD [address] [place] [address] ARTHROPLASTY TOTAL KNEE Scheduled Procedures Name Priority Associated Diagnoses Date/Ti me ARTHROPLASTY TOTAL KNEE Primary osteoarthritis of right knee 07/09/2024 8:50 AM [facility]F [facility]INE Health Maintenance Due Date Last Done Comments Breast Cancer Screening-Mammogram 1956 Colon Cancer Screening-Colonoscopy 1955 Depression Screening 1956 Hepatitis C Screening 1956 Osteoporosis Screening-Bone Density Scan 1956 Hepatitis B Screening 1974 Zoster Vaccine (1 of 2) 2006 DTaP/Tdap/Td Vaccine (2 - Td or Tdap) 11/28/2019 11/27/2009, 07/14/1999 Pneumococcal vaccine 65+ (1 of 1 - PCV) 2021 Well Visit 65+ 2021 Covid-19 Vaccine (3 - 2023-2 5 season) 2024 05/28/2021, 10/17/2020 Influenza Vaccine (#1) 2024 , 03/06/2020, 03/12/2019, Additional history exists Fall Risk Assessment 06/11/2025 06/11/2024 Medical Devices Implanted Type Area Vp Marketing Device Identifier Shelf Expiration Date Model / Serial / Lot [employer] Simplex P Full Dose Radiopaque Preblend Cement Bone Tobramycin 6197-9-010 - Sna - [id number] Implanted:Qty: 1 on 07/20/2023 by Gavin Hidalgo MD at [facility] Bone Cement Left: Knee [employer] 09/25/2024 6197-9-010 / NA / [id number] [employer] Simplex P Full Dose Radiopaque Preblend Cement Bone Tobramycin 6197-9-010 - Sna - [id number] Implanted:Qty: 1 on 07/20/2023 by Gavin Hidalgo MD at [facility] Bone Cement Left: Knee [employer] 09/25/2024 6197-9-010 / NA / [id number] [employer] Simplex P Full Dose Radiopaque Preblend Cement Bone Tobramycin 6197-9-010 - Sna - [id number] Implanted:Qty: 1 on 07/20/2023 by Gavin Hidalgo MD at [facility] Bone Cement Left: Knee [employer] 02/25/2025 6197-9-010 / NA / [id number] [employer] Attune Cemented Cruciate Retaining Knee Left 6 Component Femoral [id number] - Sna - [id number] Implanted:Qty: 1 on 07/20/2023 by Gavin Hidalgo MD at [facility] Other - see comments Left: Knee [employer] [id number] 03/28/2033 [id number] / NA / [id number] Description:Implant pause pe rformed prior to implant being opened to sterile field. [employer] Attune S+ Cement Fix Bearing Knee 5 Baseplate Tibial [id number] - Sna - [id number] Implanted:Qty: 1 on 07/20/2023 by Gavin Hidalgo MD at [facility] Other - see comments Left: Knee [employer] [id number] 04/27/2033 [id number] / NA / [id number] Description:Implant pause pe rformed prior to implant being opened to sterile field. [employer] Insert Attune Left Medial Stabilized Size 6 8mm [id number] - Sna - [id number] Implanted:Qty: 1 on 07/20/2023 by Gavin Hidalgo MD at [facility] Other - see comments Left: Knee [employer] [id number] 10/26/2029 [id number] / NA / [id number] Description:Implant pause pe rformed prior to implant being opened to sterile field. Procedures Procedure Name Priority Date/Time Associated Diagnosis Comments EGFR Routine 06/11/2024 10:35 AM CHEF DE CUISINE Primary osteoarthritis of right knee Pre-op testing DIFFERENTIAL AUTO Routine 06/11/2024 10: 35 AM CHEF DE CUISINE Primary osteoarthritis of right knee Pre-op testing VITAMIN D 25 HYDROXY Routine 06/11/2024 10:35 AM CHEF DE CUISINE Primary osteoarthritis of right knee Pre-op testing Vitamin D deficiency CBC WITH AUTO DIFFERENTIAL Routine 06/11/2024 10:35 AM CHEF DE CUISINE Primary osteoarthritis of right knee Pre-op testing COMPREHENSIVE METABOLIC PANEL Routine 06/11/2024 10:35 AM CHEF DE CUISINE Primary osteoarthritis of right knee Pre-op testing from Last 3 Months Results * eGFR (06/11/2024 10:35 AM CHEF DE CUISINE) eGFR >90 >=60 mL/min/1. 73 m2 Comment: Interpretive Data Reference Interval Normal ?>/= 90 mL/min/1.73m2 Mildly decreased* ? 60 - 89 mL/min/1.73m2 Mildly to moderately decreased ?45 - 59 mL/min/1.73m2 Moderately to severely decreased ??30 - 44 mL/min/1.73m2 Severely decreased ?15 - 29 mL/min/1.73m2 Kidney Failure ?< 15 ??mL/min/1.73m2 *Relative to young adult level Estimated glomerular filtration rate is determined by the 2020 CKD-EPI equation recommended by the National Kidney Foundation (A Unifying Approach to GFR Estimation: Recommendations of the NKF-ASK Task Force on Reassessing the Inclusion of Race in Diagnosing Kidney Disease, JASN 202). The CKD-EPI equation should not be used for patients with unstable renal function and has not been validated in children and those over 70. Current interpretive data was last reviewed 2021. Blood 06/11/2024 10:3 5 AM CHEF DE CUISINE 06/11/2024 10:44 AM CHEF DE CUISINE us Gavin Hidalgo MD LAB BLOOD ORDERABLES Final Resul t [facility] [address] [place] [employer] [employer] [place] [address] * Differential, auto (06/11/2024 10:35 AM CHEF DE CUISINE) Neutrophil abs 3.3 1.5 - 6.5 K/cumm Imm gran abs 0.0 0.0 - 0.1 K/cumm [facility] Lymphocyte abs 1.6 0.8 - 3.3 K/cumm [facility] Monocyte abs 0.6 0.2 - 0.8 K/cumm [facility] Eosinophil abs 0.1 0.0 - 0.5 K/cumm [facility] Basophil abs 0.0 0.0 - 0.1 K/cumm [facility] Neutrophil pct 58.4 % [facility] Comment: Interpretive Data Percent cell count reference ranges are not reported, since discordance with absolute values may lead to misinterpretation of CBC data. Current Interpretive Data was last revised on 2017. Imm gran pct 0.4 % [facility] Comment: Interpretive Data Percent cell count reference ranges are not reported, since discordance with absolute values may lead to misinterpretation of CBC data. Current Interpretive Data was last revised on 2017. Lymphocyte pct 28.2 % [facility] Comment: Interpretive Data Percent cell count reference ranges are not reported, since discordance with absolute values may lead to misinterpretation of CBC data. Current Interpretive Data was last revised on 2017. Monocyte pct 10.5 % [facility] Comment: Interpretive Data Percent cell count reference ranges are not reported, since discordance with absolute values may lead to misinterpretation of CBC data. Current Interpretive Data was last revised on 2017. Eosinophil pct 2.1 % [facility] Comment: Interpretive Data Percent cell count reference ranges are not reported, since discordance with absolute values may lead to misinterpretation of CBC data. Current Interpretive Data was last revised on 2017. Basophil pct 0.4 % [facility] Comment: Interpretive Data Percent cell count reference ranges are not reported, since discordance with absolute values may lead to misinterpretation of CBC data. Current Interpretive Data was last revised on 2017. Blood 06/11/2024 10:3 5 AM CHEF DE CUISINE 06/11/2024 10:44 AM CHEF DE CUISINE us Gavin Hidalgo MD LAB BLOOD ORDERABLES Final Resul t [facility] [address] [facility] [place] [address] * CBC with auto differential (06/11/2024 10:35 AM CHEF DE CUISINE) WBC 5.7 3.8 - 9.9 K/cumm Hgb 13.1 11.9 - 15.5 g/dL [facility] Hct 40.3 35.6 - 45.5 % [facility] Plt 194 150 - 400 K/cumm [facility] MPV 10.5 9.1 - 12.3 fL [facility] RBC 4.30 3.90 - 5.20 M/cumm [facility] MCV 93.7 81.3 - 96.[address] [facility] MCH 30.5 27.1 - 33.3 pg [facility] MCHC 32.5 32.3 - 35.7 g/dL [facility] RDW CV 12.7 11.1 - 14.9 % [facility] RDW SD 43.8 35.7 - 48.1 fL [facility] NRBC abs 0.00 0.00 - 0.01 K/cumm [facility] Blood 06/11/2024 10:3 5 AM CHEF DE CUISINE 06/11/2024 10:44 AM CHEF DE CUISINE us Gavin Hidalgo MD LAB BLOOD ORDERABLES Final Resul t Performing Organization Address City/[facility] Co de Phone Number [facility] [address] [facility] [place] [address] * Vitamin D 25 hydroxy (06/11/2024 10:35 AM CHEF DE CUISINE) Pathologist [facility] Vitamin D 25-OH 34 30 - 80 ng/mL Blood 06/11/2024 10:3 5 AM CHEF DE CUISINE 06/11/2024 10:44 AM CHEF DE CUISINE Gavin Hidalgo MD LAB BLOOD ORDERABLES Final Resul t Performing Organization Address [facility]/ZIP Co de Phone Number [facility] [address] [place] [address] * Comprehensive metabolic panel (06/11/2024 10:35 AM CHEF DE CUISINE) Sodium 138 135 - 145 mmol/L Potassium, pl 4.3 3.3 - 4.9 mmol/L [facility] Chloride 102 97 - 110 mmol/L [facility] CO2 28 22 - 32 mmol/L [facility] Anion gap 8 2 - 15 mmol/L [facility] BUN 13 6 - 25 mg/dL [facility] Creatinine 0.61 0.60 - 1.10 mg/dL [facility] Glucose 91 70 - 199 mg/dL [facility] Comment: Interpretive Data Fasting glucose >/= 126 mg/dl is diagnostic for diabetes. ?? Fasting is defined as no caloric intake for at least 8 hours. Fasting glucose between 100 mg/dl to 125 mg/dl is diagnostic of prediabetes. In a patient with classic symptoms of hyperglycemia or hyperglycemic crisis, a random glucose >/= 200 mg/dl is diagnostic for diabetes. In the absence of unequivocal hyperglycemia, results should be confirmed by repeat testing. The classification and Diagnosis of Diabetes Diabetes Care 2021; 46: S19-S40. Current interpretive data was last revised 2022. Calcium 9.6 8.5 - 10.3 mg/dL [facility] Bilirubin, total 0.2 0.1 - 1.2 mg/dL [facility] Protein, pl 6.9 6.5 - 8.5 g/dL [facility] Albumin 3.9 3.5 - 5.0 g/dL [facility] Alk phos 85 40 - 130 Units/L [facility] ALT 22 7 - 45 Units/L [facility] AST 17 10 - 45 Units/L [facility] Blood 06/11/2024 10:3 5 AM CHEF DE CUISINE 06/11/2024 10:44 AM CHEF DE CUISINE us Gavin Hidalgo MD LAB BLOOD ORDERABLES Final Resul t [facility] [address]. [place] [address] from Last 3 Months Insurance [employer] [facility] MEDICARE MEDICARE ON LICENSE OF [facility] INSURANCE MEDICARE [facility] Advance Directives For more information, please contact: [phone] Documents on File Type Date Recorded Patient Insurance Premium Auditor Expl anation ADVANCE DIRECTIVE 07/21/2023 11:05 AM SHEEBA R OF PERCUSSION INSTRUMENT REPAIRER-MEDICAL * Full Code (Latest Code Status on File) Date Activated Date Inactivated Comments 07/20/2023 10:33 AM 07/20/2023 9:01 PM Care Teams Medical Instructor Relationship Specialty Start Date End Date Lillian Tiwari MD PCP - General Family Medicine 08/07/19
--- OUTSIDE RECORDS SUMMARY | 2024-06-20 19:49 | XMS_ITS | Patient Health Summary ---
Author Organization [facility] [employer] Address [address] [place] [address] Care Team Providers Care De Alcoholizer Name Role Phone Unknown, Provider Primary Care Provider Unavaila ble Note from [facility],non-owned Affiliates and Associated Physician Practices is amultiple site organization consisting of ambulatory clinics and hospital sitesin [place], [place], [place] and [place]. This disclosure is being madepursuant to the Care Everywhere program and may not contain all information available regarding this patient. Last updated 18.[facility] [employer] Allergies No known active allergies Immunizations * FLU VACCINE QUAD IIV4 PF ID(Given 03/04/2016) * INFLUENZA VACCINE, QUADR. (FLUZONE; FLULAVAL; FLUARIX; AFLURIA QUADRIVALENT; 6MO+), 0.5 ML (IIV4)(Given 03/06/2020, 03/12/2019) * iNFLUENZA VACCINE, RECOM-LIVE, QUADR. (FLUBLOCK QUADRIVALENT; 18Y+) (RIV4)(Given 2018) Social History Tobacco Use Types Packs/Day Years Used Date Smoking Tobacco: Never Assessed Sex and Gender Information Value Date Recorded Sex Assigned at Not on file Gender Identity Not on file Sexual Orientation Not on file Care Teams De Alcoholizer Relationship Specialty Start Date End Date Unknown, Provider PCP - General 03/04/16
--- OUTSIDE RECORDS SUMMARY | 2024-06-20 19:49 | XMS_ITS | Referral Summary ---
Author Organization [facility] [place] [address] Address [address] [place] [address] Care Team Providers Care Infectious Waste Technician Name Role Phone Lillian Tiwari MD Primary Care Provider Encounters Date Type Department Care Team Description 06/11/2024 10:30 AM COMMERCIAL PROPERTY ADMINISTRATOR Lab [facility] [address] [address] [address] Primary osteoarthritis of right knee; Pre-op testing; Vitamin D deficiency 06/11/2024 9:30 AM COMMERCIAL PROPERTY ADMINISTRATOR Pre-Admission Testing [facility] Pre-Anesthesia Testing [address] [address] [address] from Last 3 Months Allergies No known active allergies Medications valACYclovir [...] 07/20/2023 Primary osteoarthritis of left knee 05/15/2023 Immunizations Name Administration Dates Next Due Influenza, Quadrivalent, Rec ombinant, Egg Free, Preservative Free, Intramuscular 2018 Influenza, Quadrivalent, Spl it, Preservative Free, Intramuscular 03/04/2021,03/06/2020,03/12/2019 Influenza, Trivalent, IM (MDV) 03/09/2014,2012 Influenza, Trivalent, Preser vative Free, Intramuscular 04/01/2015 Td, adsorbed 07/14/1999 Tdap 11/27/2009 Social History Tobacco Use Types Packs/Day Years [...] on file Legal Sex Female 6:26 AM COMMERCIAL PROPERTY ADMINISTRATOR Gender Identity Female 11/05/2021 3:12 PM CDT Sexual Orientation Straight 11/05/2021 3: 12 PM CDT Occupation Industry Job Start Date Job End Date Retired Not on file Not on file Not on file Last Filed Vital Signs Vital Sign Reading Time Taken Comments Blood Pressure 121/69 06/11/2024 9:49 AM COMMERCIAL PROPERTY ADMINISTRATOR Pulse 72 06/11/2024 9:42 AM COMMERCIAL PROPERTY ADMINISTRATOR Temperature 36.9 ??C (98.4 ??F) 07/20/2023 12:[address] Respiratory Rate 16 06/11/2024 9:42 AM COMMERCIAL PROPERTY ADMINISTRATOR Oxygen Saturation 99% 06/11/2024 9:42 AM COMMERCIAL PROPERTY ADMINISTRATOR Inhaled Oxygen Concentration - - Weight 71.7 kg (158 lb) 06/11/2024 9:42 AM COMMERCIAL PROPERTY ADMINISTRATOR Height 167.6 cm (5' 6 ) 06/11/2024 9:42 AM COMMERCIAL PROPERTY ADMINISTRATOR Body Mass Index 25.5 06/11/2024 9:42 AM COMMERCIAL PROPERTY ADMINISTRATOR Plan of Treatment Upcoming Encounters Date Type Department Care Team (Latest Contact Info) Description 07/09/2024 8:50 AM COMMERCIAL PROPERTY ADMINISTRATOR Hospital Encounter [facility] Operating Room [address] [address] [address] Gavin Hidalgo MD [id number] [place] [address] 07/09/2024 8:50 AM COMMERCIAL PROPERTY ADMINISTRATOR Anesthesia Event [facility] Operating Room [address] [address] [address] Elvi Villalta, [employer] [id number] [place] [address] 07/09/2024 8:50 AM COMMERCIAL PROPERTY ADMINISTRATOR - 07/09/2024 11:20 AM COMMERCIAL PROPERTY ADMINISTRATOR Surgery [facility] Operating Room [address] [address] [address] Gavin Hidalgo MD [address] [place] [address] ARTHROPLASTY TOTAL KNEE Scheduled Procedures Name Priority Associated Diagnoses Date/Ti me ARTHROPLASTY TOTAL KNEE Primary osteoarthritis of right knee 07/09/2024 8:50 AM COMMERCIAL PROPERTY ADMINISTRATOR Medical Devices Implanted Type Area Trainman Device Identifier Shelf Expiration Date Model / Serial / Lot [employer] Simplex P Full Dose Radiopaque Preblend Cement Bone Tobramycin 6197-9-010 - Sna - [id number] Implanted:Qty: 1 on 07/20/2023 by Gavin Hidalgo MD at [facility] Bone Cement Left: Knee [employer] 09/25/2024 6197-9-010 / NA / [id number] [employer] Simplex P Full Dose Radiopaque Preblend Cement Bone Tobramycin 6197-9-010 - Sna - [id number] Implanted:Qty: 1 on 07/20/2023 by Gavin Hidalgo MD at [facility] Bone Cement Left: Knee [employer] 09/25/2024 6197-9-010 / NA / [id number] [employer] Simplex P Full Dose Radiopaque Preblend Cement Bone Tobramycin 6197-9-010 - Sna - [id number] Implanted:Qty: 1 on 07/20/2023 by Gavin Hidalgo MD at [facility] Bone Cement Left: Knee [employer] 02/25/2025 6197-9-010 / NA / [id number] [employer] Attune Cemented Cruciate Retaining Knee Left 6 Component Femoral [id number] - Sna - [id number] Implanted:Qty: 1 on 07/20/2023 by Gavin Hidalgo MD at [facility] Other - see comments Left: Knee [employer] [id number] 03/28/2033 [id number] / NA / [id number] Description:Implant pause pe rformed prior to implant being opened to sterile field. [employer] Attune S+ Cement Fix Bearing Knee 5 Baseplate Tibial [id number] - Sna - [id number] Implanted:Qty: 1 on 07/20/2023 by Gavin Hidalgo MD at [facility] Other - see comments Left: Knee [employer] [id number] 04/27/2033 [id number] / NA / [id number] Description:Implant pause pe rformed prior to implant being opened to sterile field. [employer] Insert Attune Left Medial Stabilized Size 6 8mm [id number] - Sna - [id number] Implanted:Qty: 1 on 07/20/2023 by Gavin Hidalgo MD at [facility] Other - see comments Left: Knee [employer] [id number] 10/26/2029 [id number] / NA / [id number] Description:Implant pause pe rformed prior to implant being opened to sterile field. Procedures Procedure Name Priority Date/Time Associated Diagnosis Comments EGFR Routine 06/11/2024 10:35 AM COMMERCIAL PROPERTY ADMINISTRATOR Primary osteoarthritis of right knee Pre-op testing DIFFERENTIAL AUTO Routine 06/11/2024 10: 35 AM COMMERCIAL PROPERTY ADMINISTRATOR Primary osteoarthritis of right knee Pre-op testing VITAMIN D 25 HYDROXY Routine 06/11/2024 10:35 AM COMMERCIAL PROPERTY ADMINISTRATOR Primary osteoarthritis of right knee Pre-op testing Vitamin D deficiency CBC WITH AUTO DIFFERENTIAL Routine 06/11/2024 10:35 AM COMMERCIAL PROPERTY ADMINISTRATOR Primary osteoarthritis of right knee Pre-op testing COMPREHENSIVE METABOLIC PANEL Routine 06/11/2024 10:35 AM COMMERCIAL PROPERTY ADMINISTRATOR Primary osteoarthritis of right knee Pre-op testing from Last 3 Months Results * eGFR (06/11/2024 10:35 AM COMMERCIAL PROPERTY ADMINISTRATOR) eGFR >90 >=60 mL/min/1. 73 m2 Comment: [...] of Race in Diagnosing Kidney Disease, JASN 2020). The CKD-EPI equation should not be used for patients with unstable renal function and has not been validated in children and those over 70. Current interpretive data was last reviewed 2021. Blood 06/11/2024 10:3 5 AM COMMERCIAL PROPERTY ADMINISTRATOR 06/11/2024 10:44 AM COMMERCIAL PROPERTY ADMINISTRATOR us Gavin Hidalgo MD LAB BLOOD ORDERABLES Final Resul t [facility] SPE[facility] [id number] [place] [address] * Differential, auto (06/11/2024 10:35 AM COMMERCIAL PROPERTY ADMINISTRATOR) Neutrophil abs 3.3 1.5 - 6.5 K/cumm Imm gran abs 0.0 0.0 - 0.1 K/cumm [facility] Lymphocyte abs 1.6 0.8 - 3.3 K/cumm [facility] Monocyte abs 0.6 0.2 - 0.8 K/cumm [facility] Eosinophil abs 0.1 0.0 - 0.5 K/cumm [facility] Basophil abs 0.0 0.0 - 0.1 K/cumm [facility] Neutrophil pct 58.4 % [facility] Comment: Interpretive Data Percent cell count reference ranges are not reported, since discordance with absolute values may lead to misinterpretation of CBC data. Current Interpretive Data was last revised on 2017. Imm gran pct 0.4 % [facility] Comment: Interpretive Data Percent cell count reference ranges are not reported, since discordance with absolute values may lead to misinterpretation of CBC data. Current Interpretive Data was last revised on 2017. Lymphocyte pct 28.2 % [facility]ST[facility] Comment: Interpretive Data Percent cell count reference ranges are not reported, since discordance with absolute values may lead to misinterpretation of CBC data. Current Interpretive Data was last revised on 2017. Monocyte pct 10.5 % K[facility]STINA SPEARS Comment: Interpretive Data Percent cell count reference ranges are not reported, since discordance with absolute values may lead to misinterpretation of CBC data. Current Interpretive Data was last revised on 2017. Eosinophil pct 2.1 % [facility] Comment: Interpretive Data Percent cell count reference ranges are not reported, since discordance with absolute values may lead to misinterpretation of CBC data. Current Interpretive Data was last revised on 2017. Basophil pct 0.4 % [facility] Comment: Interpretive Data Percent cell count reference ranges are not reported, since discordance with absolute values may lead to misinterpretation of CBC data. Current Interpretive Data was last revised on 2017. Blood 06/11/2024 10:3 5 AM COMMERCIAL PROPERTY ADMINISTRATOR 06/11/2024 10:44 AM COMMERCIAL PROPERTY ADMINISTRATOR Gavin Hidalgo MD LAB BLOOD ORDERABLES Final Resul t Performing Organization Address [facility] Co de Phone Number KRISTINA SPEARS [id number] [place] [address] * CBC with auto differential (06/11/2024 10:35 AM COMMERCIAL PROPERTY ADMINISTRATOR) WBC 5.7 3.8 - 9.9 K/cumm Hgb 13.1 11.9 - 15.5 g/dL [facility] Hct 40.3 35.6 - 45.5 % [facility] Plt 194 150 - 400 K/cumm [facility] MPV 10.5 9.1 - 12.3 fL [facility] RBC 4.30 3.90 - 5.20 M/cumm [facility] MCV 93.7 81.3 - 96.4 fL [facility] MCH 30.5 27.1 - 33.3 pg [facility] MCHC 32.5 32.3 - 35.7 g/dL [facility] RDW CV 12.7 11.1 - 14.9 % [facility] RDW SD 43.8 35.7 - 48.1 fL [facility] NRBC abs 0.00 0.00 - 0.01 K/cumm [facility] Blood 06/11/2024 10:3 5 AM COMMERCIAL PROPERTY ADMINISTRATOR 06/11/2024 10:44 AM COMMERCIAL PROPERTY ADMINISTRATOR Gavin Hidalgo MD LAB BLOOD ORDERABLES Final Resul t Performing Organization Address [facility] de Phone Number KRISTINA SPEARS [address] [place] [address] * Vitamin D 25 hydroxy (06/11/2024 10:35 AM COMMERCIAL PROPERTY ADMINISTRATOR) Vitamin D 25-OH 34 30 - 80 ng/mL Blood 06/11/2024 10:3 5 AM COMMERCIAL PROPERTY ADMINISTRATOR 06/11/2024 10:44 AM COMMERCIAL PROPERTY ADMINISTRATOR us Gavin Hidalgo MD LAB BLOOD ORDERABLES Final Resul t [facility] [address] [facility]. [place] [address] * Comprehensive metabolic panel (06/11/2024 10:35 AM COMMERCIAL PROPERTY ADMINISTRATOR) Sodium 138 135 - 145 mmol/L Potassium, pl 4.3 3.3 - 4.9 mmol/L [facility] Chloride 102 97 - 110 mmol/L [facility] CO2 28 22 - 32 mmol/L [facility] Anion gap 8 2 - 15 mmol/L [facility] BUN 13 6 - 25 mg/dL [facility] Creatinine 0.61 0.60 - 1.10 mg/dL [facility] Glucose 91 70 - 199 mg/dL [facility] Comment: Interpretive Data Fasting glucose >/= 126 [...] Calcium 9.6 8.5 - 10.3 mg/dL [facility] Bilirubin, total 0.2 0.1 - 1.2 mg/dL [facility] Protein, pl 6.9 6.5 - 8.5 g/dL [facility] Albumin 3.9 3.5 - 5.0 g/dL [facility] Alk phos 85 40 - 130 Units/L [facility] ALT 22 7 - 45 Units/L [facility] AST 17 10 - 45 Units/L [facility] Blood 06/11/2024 10:3 5 AM COMMERCIAL PROPERTY ADMINISTRATOR 06/11/2024 10:44 AM COMMERCIAL PROPERTY ADMINISTRATOR Gavin Hidalgo MD LAB BLOOD ORDERABLES Final Resul t [facility] [address]. [place] [address] from Last 3 Months Insurance [employer] [facility] MEDICARE [place]IC[place]ANCE Advance Directives For more information, please contact: [phone] Documents on File Type Date Recorded Patient Driver/Refuse Collector Expl anation ADVANCE DIRECTIVE 07/21/2023 11:05 AM SHEEBA R OF CLINICAL TRIALS SPECIALIST-MEDICAL * Full Code (Latest Code Status on File) Date Activated Date Inactivated Comments 07/20/2023 10:33 AM 07/20/2023 9:01 PM Care Teams Infectious Waste Technician Relationship Specialty Start Date End Date Lillian Tiwari MD PCP - General Family Medicine 08/07/19
== END 2024-06-18 15:27 | disposition home or self-care (01) ==
PROVIDERS: PCP Family Medicine; Visit Provider Family Medicine
DX: Z12.31 Encounter for screening mammogram for malignant neoplasm of breast (principal)
CPT/HCPCS: 77063; 77067

== ENCOUNTER 2025-02-03 21:07 | Emergency (ER) | payer MEDICARE, SELFPAY ==
--- NOTE | ~2025-02-03 | CT_ITS ---
Arianna Kenny Hillman EXAMINATION: CT abdomen pelvis w con COMPARISON: None HISTORY: flank pain, abd pain TECHNIQUE: Axial images were obtained through the abdomen, pelvis post administration of IV contrast. Oral contrast was also administered. Coronal reconstruction images were obtained from the axial views. CT scan performed using dose optimization techniques including the following automated exposure control; adjustment of mA and/or kV; use of iterative reconstruction technique. Automatic exposure control was used to reduce radiation dose. Permanent radiation dose record is archived to PACS. FINDINGS: CT abdomen: LUNG BASES: The lung bases are clear. The visualized portions of the heart and pericardium are unremarkable. LIVER: Left lobe liver there is a complex solid-appearing lesion 2 x 1.5 cm incompletely assessed possible hemangioma, outpatient contrast-enhanced MRI recommended. Subcentimeter probable liver cysts. Portal vein patent. No intrahepatic biliary duct dilatation. SPLEEN: Unremarkable. KIDNEYS: Right Kidney: Unremarkable. No calculi. No hydronephrosis. Left Kidney: Unremarkable. No calculi. No hydronephrosis ADRENAL GLANDS: Unremarkable. PANCREAS: Unremarkable. GALLBLADDER/BILIARY: Unremarkable. No biliary dilatation. STOMACH AND ESOPHAGUS: Visualized stomach and esophagus within normal limits. BOWEL/MESENTERY: Moderate fecal content, no colitis or diverticulitis. Appendix normal. Mesentery normal. Small bowel normal. ADENOPATHY/RETROPERITONEUM: No lymphadenopathy. AORTA/VASCULATURE: Normal caliber aorta. FREE FLUID OR FREE AIR: No free fluid.. CT pelvis: SOLID ORGANS/REPRODUCTIVE: Uterus is atrophic. No adnexal mass. BLADDER: Within normal limits. OSSEOUS STRUCTURES: No acute osseous abnormality.No suspicious lesions. OVERLYING SOFT TISSUES: Small fat-containing umbilical hernia. IMPRESSION: 1. No acute intra-abdominal process. Incidental findings above Reviewed, dictated and finalized at location A.
[2025-02-03 21:09] VITALS: BP 151/62; PULSE 79; RESP 18; TEMP 36.8; O2SAT 100
[2025-02-03 21:39] LABS: Hematocrit 36.5 % (37.0-47.0); Hemoglobin 11.8 g/dL (12.0-15.0); Immature Granulocyte Percent A 0.4 % (0-0.5); Lymphocytes Absolute Auto 2.14 K/mm3 (0.9-3.2); Mean Corpuscular HGB Conc 32.3 g/dl (32-36); Mean Corpuscular Hemoglobin 29.7 pg (26-34); Mean Corpuscular Volume 91.9 fl (80-100); Nucleated Red Blood Cells Absolute Auto 0.000 K/mm3 (0.0-0.012); Nucleated Red Blood Cells Perc 0.0 % (0.0-0.2); Platelet Count Result 243 k/mm3 (150-375); Red Blood Count 3.97 M/mm3 (4.2-5.4); White Blood Count 7.4 K/mm3 (4.5-10.0)
[2025-02-03 21:51] LABS: Add Urine Microscopic? YES; Appearance Urine Clear (Clear); Glucose Urine UA Negative (Negative); Leukocyte Esterase Ur Trace LEU/UL (Negative); Nitrate Urine Negative (Negative); Non Pathogenic Casts 0-2; Specific Grav Ur 1.012 (1.001-1.035)
[2025-02-03 21:58] LABS: Alanine Aminotransferase 31 U/L (6-35); Albumin Level 4.2 g/dL (3.5-5.1); Alkaline Phosphatase 106 U/L (38-126); Anion Gap 7 mmol/L (4-12); Aspartate Amino Transferase 33 U/L (14-36); Bilirubin,Total 0.2 mg/dL (0.2-1.3); Blood Urea Nitrogen 18 mg/dL (7-17); Calcium 9.6 mg/dL (8.4-10.2); Carbon Dioxide 28 mmol/L (22-30); Chloride 102 mmol/L (98-107); Estimated CRCL calculation 60 ml/min; Estimated Glomerular Filt Rate > 60; Glucose 99 mg/dL (65-110); Lipase 182 U/L (23-300); Potassium 4.1 mmol/L (3.4-5.0); Sodium 137 mmol/L (137-145); Total Protein 7.4 g/dL (6.3-8.2)
--- NOTE | 2025-02-03 22:27 | ED.ABDPAIN ---
HPI - Abdominal Pain General Chief Complaint: Abdominal Pain Stated Complaint: abd pain Time Seen by Provider: 02/03/25 21:57 Source: patient Mode of arrival: ambulatory Limitations: no limitations History of Present Illness HPI narrative: This is a 69 year old female that presents to the ER for low back pain. Ongoing over the last 4 days. Reports pain now radiates to her abdomen. Reports feeling bloated. Pain is worse with movement and relieved with rest. Has been taking [id number] Tylenol and anti-inflammatories. Denies fever, vomiting, diarrhea, dysuria, hematuria. Related Data Home Medications ?Medication ?Instructions ?Recorded ?Confirmed ?Last Taken ?Type valacyclovir 500 mg tablet 500 mg PO DAILY 05/03/19 01/19/24 08/06/19 History antiarthritic combination no.2 900 900 mg PO DAILY 11/11/20 01/19/24 Unknown History mg tablet (glucosamine-chondroitin) cholecalciferol (vitamin D3) 50 50 mcg PO DAILY 11/11/20 01/19/24 Unknown History mcg (2,000 unit) capsule Allergies Allergy/AdvReac Type Severity Reaction Status Date / Time No Known Allergies Allergy Unknown Verified 02/03/25 21:15 Review of Systems Review of Systems: All systems reviewed & are unremarkable except as noted in HPI and below PMFSH Past Medical History Medical History Benign head tremor Essential hypertension Hemorrhoids Surgical History Surgical History History of left knee replacement (~06/2023) No significant past surgical history Family History Family History Sibling DVT (deep venous thrombosis) Acute myocardial infarction Father DVT (deep venous thrombosis) Acute myocardial infarction Mother Lung cancer Social History Social History Smoking status: Never smoker Second hand tobacco smoke exposure: No Alcohol intake: current Alcohol use details: rarely Substance use: never Substance use type: does not use Lack of Transportation: No Lack of Food: Never True Current Housing: I Have Housing Concerned About Future Housing: No Difficulty Paying Gas/Electric Bills: No Difficulty Paying for Meds: No Currently Unemployed: No Education: Bachelor's Degree Difficulty w/ Childcare or Family Care: No Living arrangements: with family Spiritual care concerns: No Exam Narrative: GENERAL: Well-appearing, well-nourished, and in no acute distress. HEAD: Normocephalic, atraumatic. EYES: EOMI. CHEST: Clear to auscultation. No respiratory distress. No wheezes rales or rhonchi HEART: Regular rate and rhythm. No murmur heard. Normal peripheral pulses. ABDOMEN: Soft, nontender, nondistended, normal active bowel sounds. EXTREMITIES: Normal range of motion. No edema. SKIN: Warm, dry, no rash. NEURO: No focal deficits. Alert and oriented x3. PSYCH: Normal mood and affect Course Course Emergency Course: Patient and family updated on workup and agree with plan of care Vital Signs Vital signs: Vital Signs Temperature 98.3 F 02/03/25 21:09 Pulse Rate 79 02/03/25 21:09 Respiratory Rate 18 02/03/25 21:09 Blood Pressure 151/62 H 02/03/25 21:09 Pulse Oximetry 100 02/03/25 21:09 Oxygen Delivery Room Air 02/03/25 21:09 Temperature 98.3 F 02/03/25 21:09 Pulse Rate 72 02/03/25 23:57 Respiratory Rate 17 02/03/25 23:57 Blood Pressure 165/76 H 02/03/25 23:57 Pulse Oximetry 100 02/03/25 23:57 Oxygen Delivery Room Air 02/03/25 21:09 MDM - Abdominal Pain MDM Narrative Medical decision making narrative: Patient presents the emergency department for flank pain, abdominal pain. She is afebrile and nontoxic appearing. Her vitals are stable. Cbc without leukocytosis. Metabolic panel without concerning findings. Lipase is normal. Urine without evidence of infection. CT abdomen pelvis without acute findings. Patient updated on her workup and agrees with plan of care. She is to follow up with primary provider. She was given warnings to return to the ER Differential Diagnosis Differential diagnosis: Likely calculus of kidney and other (Lumbar spondylosis, UTI) Lab Data Attestation: I reviewed the patient's lab results. 02/03/25 21:32 02/03/25 21:32 Labs: Lab Results 02/03/25 02/03/25 Range/Units 21:32 21:42 WBC 7.4 (4.5-10.0) K/mm3 RBC 3.97 L (4.2-5.4) M/mm3 Hgb 11.8 L (12.0-15.0) g/dL Hct 36.5 L (37.0-47.0) % MCV 91.9 (80-100) fl MCH 29.7 (26-34) pg MCHC 32.3 (32-36) g/dl RDW 13.4 (11.5-14.5) % Plt Count 243 (150-375) k/mm3 MPV 10.1 (7.4-10.4) fl Immature Gran % (Auto) 0.4 (0-0.5) % Neut % (Auto) 59.0 (45.5-73.1) % Lymph % (Auto) 28.8 (18.3-44.2) % [place] % (Auto) 8.0 (2.6-8.5) % Eos % (Auto) 3.4 (0-4.4) % Baso % (Auto) 0.4 (0.2-1.2) % Lymph # (Auto) 2.14 (0.9-3.2) K/mm3 [place] # (Auto) 0.6 (0.1-0.6) K/mm3 Eos # (Auto) 0.3 (0-0.3) K/mm3 Baso # (Auto) 0.0 (0.0-0.1) K/mm3 Abs Immat Gran (auto) 0.03 (0.00-0.031) K/mm3 Absolute Neuts (auto) 4.4 (1.3-6.7) K/mm3 Absolute Nucleated RBC 0.000 (0.0-0.012) K/mm3 Nucleated RBC % 0.0 (0.0-0.2) % Sodium 137 (137-145) mmol/L Potassium 4.1 (3.4-5.0) mmol/L Chloride 102 (98-107) mmol/L Carbon Dioxide 28 (22-30) mmol/L Anion Gap 7 (4-12) mmol/L BUN 18 H (7-17) mg/dL Creatinine 0.72 (0.7-1.0) mg/dL Estim Creat Clear Calc 60 ml/min Estimated GFR > 60 (59 - ) Glucose 99 (65-110) mg/dL Calcium 9.6 (8.4-10.2) mg/dL Total Bilirubin 0.2 (0.2-1.3) mg/dL AST 33 (14-36) U/L ALT 31 (6-35) U/L Alkaline Phosphatase 106 (38-126) U/L Total Protein 7.4 (6.3-8.2) g/dL Albumin 4.2 (3.5-5.1) g/dL Lipase 182 (23-300) U/L Urine Color Yellow (Yellow) Urine Appearance Clear (Clear) Urine pH 7.0 (5.0-9.0) Ur Specific [place] 1.012 (1.001-1.035) Urine Protein Negative (Negative) mg/dL Urine Glucose (UA) Negative (Negative) mg/dL Urine Ketones Negative (Negative) mg/dL Ur Blood (Man) Negative (Negative) Urine Nitrate Negative (Negative) Urine Bilirubin Negative (Negative) Urine Urobilinogen 0.2 (<2.0) mg/dL Leukocyte Esterase Rfl Trace H (Negative) STEPHANIE/UL Urine RBC 0-2 (0-2) /hpf Urine WBC 0-5 (0-3) /hpf Ur Squamous Epith Cells None seen (Few) /hpf Urine Bacteria None seen /hpf Urine Casts 0-2 Imaging Data Radiologist's impression: CT abdomen and pelvis: No acute findings Critical Care Time Critical Care Time Critical Care Time: No Discharge Plan Discharge Clinical Impression: Low back pain Qualifiers: Chronicity: acute Back pain laterality: bilateral Sciatica presence: without sciatica Qualified Code(s): M54.50 - Low back pain, unspecified Patient Disposition: Home Condition: Stable Instructions: Acute Low Back Pain (ED) Additional Instructions: Return to the ER if you experience fever, abdominal pain with nausea and vomiting, weakness, numbness, bowel/bladder incontinence, or any other symptoms that are concerning to you Rest, use ice/heat, take anti-inflammatories (Aleve, Ibuprofen, Naproxen, etc) or Tylenol as needed for pain as well as muscle relaxer (Flexeril) as needed for pain. Muscle relaxers can make you drowsy, do not drive if you take this. Lidocaine patch to the area of pain as needed Follow up with your primary care doctor Patient Language: Pashto Prescriptions: New cyclobenzaprine 10 mg tablet 10 mg PO TID PRN (Reason: muscle spasm) Qty: 14 0RF lidocaine 5 % adhesive patch,medicated 1 patch topical DAILY Qty: 15 0RF Rx Instructions: leave on most painful area for up to 12 hrs No Action valacyclovir 500 mg tablet 500 mg PO DAILY glucosamine-chondroitin 900 mg tablet 900 mg PO DAILY cholecalciferol (vitamin D3) 50 mcg (2,000 unit) capsule 50 mcg PO DAILY rosuvastatin 5 mg tablet 5 mg PO DAILY Qty: 90 1RF lisinopril 10 mg tablet 10 mg PO DAILY Qty: 90 1RF Follow-up/Referrals: Lillian Tiwari MD [Primary Care Provider, Family Practice]
[2025-02-03 23:57] VITALS: BP 165/76; PULSE 72; RESP 17; O2SAT 100
== END 2025-02-04 02:17 | disposition home or self-care (01) ==
PROVIDERS: Emergency Medicine; Emergency Provider Physician Assistant; PCP Family Medicine
DX: M54.50 Low back pain, unspecified (principal); I10 Essential (primary) hypertension; Z96.652 Presence of left artificial knee joint; Z79.899 Other long term (current) drug therapy
CPT/HCPCS: 36415; 74177; 80053; 81001; 83690; 85025; 99284; Q9967

== ENCOUNTER 2025-02-12 10:21 | Outpatient (CLI) | payer MEDICARE, SELFPAY ==
--- NOTE | ~2025-02-12 | XR_ITS ---
XR thoracic spine 2V Indication: M54.9 - Dorsalgia; LEFT SIDE UPPER BACK PAIN x2 WKS Comparison: None Findings: Moderate loss of vertebral height throughout, no fracture or subluxation. Moderate to severe loss of disc height throughout. Soft tissues unremarkable Impression: No acute abnormality. Reviewed, dictated and finalized at location A. Impression: No acute abnormality.
== END 2025-02-12 10:22 | disposition home or self-care (01) ==
PROVIDERS: PCP Family Medicine; Visit Provider Student in an Organized Health Care Education/Training Program
DX: M54.9 Dorsalgia, unspecified (principal)
CPT/HCPCS: 72070

== ENCOUNTER 2025-03-03 14:35 | Outpatient (CLI) | payer MEDICARE, SELFPAY ==
--- NOTE | ~2025-03-03 | MR_ITS ---
EXAMINATION: MR abdomen wo/w con DATE: 03/03/2025 15:50 INDICATION: Other specified diseases of liver. TECHNIQUE: Magnetic resonance imaging (MRI) of the abdomen was performed without and with 15 mL MultiHance intravenous contrast. COMPARISON: CT abdomen and pelvis 02/03/2025 FINDINGS: A 2.5 cm mass in left hepatic lobe and a 1.1 cm mass in right hepatic lobe demonstrate interrupted peripheral puddling of contrast, consistent with hemangiomas. There are cysts in the liver measuring up to 7 mm. The gallbladder, spleen, pancreas, and adrenal glands are normal. There are cysts in the kidneys measuring up to 5 mm on the left. There are no dilated loops of bowel. IMPRESSION: 1. Hemangiomas in the liver. Reviewed, dictated and finalized at location E.
--- OUTSIDE RECORDS SUMMARY | 2025-03-03 15:20 | XMS_ITS | Clinical Summary ---
Author Organization [facility] [address] Address [address] [place] [address] Care Team Providers Care [employer] Resource Teacher Name Role Phone Lillian Tiwari MD Primary Care Provider [phone] Allergies No known active allergies Medications valACYclovir (VALTREX) 500 mg tabletIndicatio ns:Prophylaxis, Medical,cold sores Take 1 tablet (500 mg total) by mouth nightly 05/29/2017 Active lisinopriL (PRINIVIL,ZESTR IL) 10 mg tabletIndicatio ns:hypertension Take 1 tablet (10 mg total) by mouth nightly 12/06/2022 Active calcium carbonate/vitam in D3 (CALCIUM 600 + D,3, ORAL)Indication s:SUPPLEMENT Take 1 tablet by mouth nightly 01/27/2023 Active amoxicillin 500 mg tablet/capsuleI ndications:Prop hylactic antibiotic TAKE 4 PILL 1 HOUR BEFORE DENTAL APPOINTMENT. 12 tablet/capsul e 10/14/2024 Active Active Problems Problem Noted Date Diagnosed Date Primary osteoarthritis of right knee 02/28/2024 Arthrofibrosis of knee joint, left 10/20/2023 Osteoarthritis of left knee, unspecified osteoarthritis type 07/20/2023 Primary osteoarthritis of left knee 05/15/2023 Immunizations Immunization Administration Dates Next Due Influenza, Quadrivalent, Rec [...] making you feel afraid or unsafe? Denies 07/09/2024 Comments No Sex and Gender Information Value Date Recorded Sex Assigned at Not on file Legal Sex Female 6:[address] OPERATOR Gender Identity Female 11/05/2021 3:12 PM CDT Sexual Orientation Straight 11/05/2021 3: 12 PM CDT Occupation Industry Job Start Date Job End Date Retired Not on file Not on file Not on file Obstetrics History Last Filed Vital Signs Vital Sign Reading Time Taken Comments Blood Pressure 138/62 07/09/2024 2:[address] PACKER OPERATOR Pulse 73 07/09/2024 2:[address] PACKER OPERATOR Temperature 36.7 C (98.1 F) 07/09/2024 2:[address] PACKER OPERATOR Respiratory Rate 19 07/09/2024 2:[address] PACKER OPERATOR Oxygen Saturation 98% 07/09/2024 2:[address] PACKER OPERATOR Inhaled Oxygen Concentration - - Weight 71.6 kg (157 lb 12.8 oz) 07/09/2024 9:[address] PACKER OPERATOR Height 167.6 cm (5' 6) 06/11/2024 9:[address] PACKER OPERATOR Body Mass Index 25.47 06/11/2024 9:[address] PACKER OPERATOR Plan of Treatment Health Maintenance Due Date Last Done Comments Breast Cancer Screening-Mammogram 1956 Colon Cancer Screening-Colonoscopy 1955 Depression Screening 1956 Hepatitis C Screening 1956 Osteoporosis Screening-Bone Density Scan 1956 Hepatitis B Screening 1974 Pneumococcal vaccine 65+ (1 of 1 - PCV) 2006 Zoster Vaccine (1 of 2) 2006 DTaP/Tdap/Td Vaccine (2 - Td or Tdap) 11/28/2019 11/27/2009, 07/14/1999 Well Visit 65+ 2021 Covid-19 Vaccine (3 - 2024-2 6 season) 2025 05/28/2021, 10/17/2020 Influenza Vaccine (#1) 2025 , 03/06/2020, 03/12/2019, Additional history exists Fall Risk Assessment 07/09/2025 07/09/2024 Medical Devices Implanted Type Area Taping Supervisor Device Identifier Shelf Expiration Date Model / Serial / Lot [employer] Simplex P Full Dose Radiopaque Preblend Cement Bone Tobramycin 6197-9-010 - Sna - [id number] Implanted:Qty: 1 on 07/20/2023 by Gavin Hidalgo MD at [facility] Bone Cement Left: Knee [employer] 09/25/2024 6197-9-010 / NA / [id number] [employer] Simplex P Full Dose Radiopaque Preblend Cement Bone Tobramycin 6197-9-010 - Sna - [id number] Implanted:Qty: 1 on 07/20/2023 by Gavin Hidalgo MD at [facility] Bone Cement Left: Knee [employer] 09/25/2024 6197-9-010 / NA / [id number] [employer] Simplex P Full Dose Radiopaque Preblend Cement Bone Tobramycin 6197-9-010 - Sna - [id number] Implanted:Qty: 1 on 07/20/2023 by Gavin Hidalgo MD at [facility] Bone Cement Left: Knee [employer] 02/25/2025 6197-9-010 / NA / [id number] [employer] Attune Cemented Cruciate Retaining Knee Left 6 Component Femoral [id number] - Sna - [id number] Implanted:Qty: 1 on 07/20/2023 by Gavin Hidalgo MD at [facility] Other - see comments Left: Knee [employer] [id number] 03/28/2033 [id number] / NA / [id number] Description:Implant pause pe rformed prior to implant being opened to sterile field. [employer] Attune S+ Cement Fix Bearing Knee 5 Baseplate Tibial [id number] - Sna - [id number] Implanted:Qty: 1 on 07/20/2023 by Gavin Hidalgo MD at [facility] Other - see comments Left: Knee [employer] [id number] 04/27/2033 [id number] / NA / [id number] Description:Implant pause pe rformed prior to implant being opened to sterile field. [employer] Insert Attune Left Medial Stabilized Size 6 8mm [id number] - Sna - [id number] Implanted:Qty: 1 on 07/20/2023 by Gavin Hidalgo MD at [facility] Other - see comments Left: Knee [employer] [id number] 10/26/2029 [id number] / NA / [id number] Description:Implant pause pe rformed prior to implant being opened to sterile field. [employer] Attune Cemented Cruciate Retaining Knee Right 5 Component Femoral [id number] - [id number] Implanted:Qty: 1 on 07/09/2024 by Gavin Hidalgo MD at [facility] [employer] [id number] 05/28/2034 [id number] / / [id number] [employer] Attune S+ Cement Fix Bearing Knee 5 Baseplate Tibial [id number] - [id number] Implanted:Qty: 1 on 07/09/2024 by Gavin Hidalgo MD at [facility] [employer] [id number] 05/28/2034 [id number] / / [id number] [employer] Insert Tibial Knee Fixed Rm Posterior Stabilized Attune 7mm Size 5 Polyethylene [id number] - [id number] Implanted:Qty: 1 on 07/09/2024 by Gavin Hidalgo MD at 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
--- OUTSIDE RECORDS SUMMARY | 2025-03-03 15:20 | XMS_ITS | Clinical Summary ---
Author Organization [facility] [employer] Address [address] [place] [address] Care Team Providers Care Court Liaison Name Role Phone Unknown, Provider Primary Care Provider Unavaila ble Source Comments [facility] [employer],non-owned Affiliates and Associated Physician Practices is amultiple site organization consisting of ambulatory clinics and hospital sitesin [place], [place], [place] and [place]. This disclosure is being madepursuant to the Care Everywhere program and may not contain all information available regarding this patient. Last updated 18.[facility] [employer] Allergies No known active allergies Immunizations Immunization Administration Dates Next Due FLU VACCINE QUAD IIV4 PF ID 03/04/2016 INFLUENZA VACCINE, QUADR. (F LUZONE; FLULAVAL; FLUARIX; AFLURIA QUADRIVALENT; 6MO+), 0.5 ML (IIV4) 03/06/2020,03/12/2019 iNFLUENZA VACCINE, RECOM-LIVE, QUADR. (FLUBLOCK QUADRIVALENT; 18Y+) (RIV4) 2018 Social History Tobacco Use Types Packs/Day Years Used Date Smoking Tobacco: Never Assessed Comments Unknown Sex and Gender Information Value Date Recorded Sex Assigned at Not on file Legal Sex Female 10:42 AM CDT Gender Identity Not on file Sexual Orientation [...] 2006 ZOSTER VACCINE (1 of 2) 2006 DEPRESSION SCREENING 05/29/2024 COVID-19 VACCINE (1 - season) 2025 INFLUENZA VACCINE (#1) 2025 0, 03/12/2019, 2018, Additional history exists Respiratory Syncytial Virus (RSV) Vaccine Pt: or [...] complete this topic MENINGOCOCCAL (Group B) VACCINE SHARED DECISION-MAKING Aged Out No longer eligible based on patient's age to complete this topic MENINGOCOCCAL GROUPS A/C/Y/W VACCINE Aged Out No longer eligible based on patient's age to complete this topic Insurance [facility] [email or web address] Care Teams Court Liaison Relationship Specialty Start Date End Date Unknown, Provider PCP - General 03/04/16
== END 2025-03-03 14:36 | disposition home or self-care (01) ==
PROVIDERS: PCP Student in an Organized Health Care Education/Training Program; Visit Provider Student in an Organized Health Care Education/Training Program
DX: D18.09 Hemangioma of other sites (principal); K76.89 Other specified diseases of liver; R16.0 Hepatomegaly, not elsewhere classified
CPT/HCPCS: 74183; A9577

== ENCOUNTER 2025-03-06 17:13 | Inpatient (IN) | payer MEDICARE, SELFPAY ==
--- NOTE | ~2025-03-06 | CT_ITS ---
EXAMINATION: CT abdomen pelvis w con DATE: 03/06/2025 18:35 INDICATION: Abdominal pain TECHNIQUE: Computed tomography (CT) of the abdomen and pelvis was performed with 100 mL Omnipaque-350 intravenous contrast. Automated exposure control and iterative reconstruction technique were employed. The dose-length product was 380.90 mGy-cm. COMPARISON: CT dated 02/03/2025 and MRI dated 03/03/25 FINDINGS: Calcified nodule at the basilar right lower lobe consistent with old granulomatous disease. Heart size is normal. No pericardial or pleural effusion. There are few small well-defined low-attenuation hepatic cysts. In addition there are 2.5 cm and 1.1 cm heterogeneously enhancing hemangiomas in the left and right hepatic lobes respectively with diagnostic pattern of evolving enhancement on prior MRI. Gallbladder, spleen, pancreas and bilateral adrenal glands are normal. Subcentimeter cysts in both kidneys with largest on the right measuring 7 mm. The recently normal caliber appendix has increased in diameter currently measuring up to 10 mm with small amount of high attenuation material within the proximal appendix. The dilation raises some concern for acute appendicitis although there is no surrounding inflammatory stranding to more specifically suggest this. Recommend of bowels are unremarkable with no obstruction or abnormal wall thickening. Bladder, anteverted uterus and bilateral adnexa are unremarkable. No free intraperitoneal gas or fluid. No pathologically enlarged abdominal or pelvic lymphadenopathy. Severe lower thoracic and moderate to severe lumbar spondylosis. There is a relatively acute appearing T10 compression fracture with 20% anterior vertebral body height loss and extensive scattered sclerotic fracture plane underlying the superior endplate of which is new since the study from one month prior. IMPRESSION: 1. Diameter of the appendix is increased from 5 mm in diameter on the study from one month prior to currently measuring 10 mm. This raises some concern for acute appendicitis although there is no surrounding inflammatory stranding to more specifically suggest this. 2. Acute to subacute T10 compression fracture with 20% anterior vertebral body height loss which is new since the study from one month prior. Reviewed, dictated and finalized at location A. IMPRESSION: 1. Diameter of the appendix is increased from 5 mm in diameter on the study fro m one month prior to currently measuring 10 mm. This raises some concern for ac marlon appendicitis although there is no surrounding inflammatory stranding to mor e specifically suggest this. 2. Acute to subacute T10 compression fracture with 20% anterior vertebral body height loss which is new since the study from one month prior.
--- NOTE | ~2025-03-06 | XR_ITS ---
Examination: XR chest 1V portable Clinical History: abdominal pain Comparison: 05/03/2019 Technique: Portable AP Findings: Heart size normal. Lungs clear. Mild hyperinflation. No acute bony abnormality. IMPRESSION: 1. No acute cardiopulmonary findings given portable technique. Reviewed, dictated and finalized at location R.
--- NOTE | 2025-03-06 17:35 | ED_ITS ---
HPI - General Adult General Chief complaint: Abdominal Pain <Bronwyn Nash TOUR SALES REPRESENTATIVE - Last Filed: 03/06/25 17:38> Stated complaint: Upper abdominal pain since 1245 <Bronwyn Nash TOUR SALES REPRESENTATIVE - Last Filed: 03/06/25 17:38> Time Seen by Provider: 03/06/25 17:35 <Bronwyn Nash, TOUR SALES REPRESENTATIVE - Last Filed: 03/06/25 17:38> Focused HPI: Arianna Hillman is a 69 y/o female with severe upper abdominal pain that started at 1230, with nausea, no vomiting, last BM was 4 days ago, denies changes with urine GENERAL: in no acute distress. HEAD: Normocephalic, atraumatic. CHEST: Clear to auscultation. ?No respiratory distress. HEART: Regular rate and rhythm.? NEURO: ?Alert and oriented x3. Patient screened in triage and initial orders placed.? ?Additional care and disposition to be based upon?diagnostic testing and treatment. <Bronwyn Nash, TOUR SALES REPRESENTATIVE - Last Filed: 03/06/25 17:38> History of Present Illness HPI narrative: Patient is a 69-year-old female presents to the emergency department complaining of abdominal pain. Patient started around 12 30, upper abdomen, sharp. Patient also notes that she has some right lower quadrant pain earlier today 2. Patient admits to nausea without any vomiting. Patient is to constipation with no bowel movement since Monday. Patient denies any known fevers. Patient admits to recent fall. <Jayson Schuster DO - Last Filed: 03/06/25 21:24> Related Data Home medications: Home Medications ?Medication ?Instructions ?Recorded ?Confirmed ?Last Taken ?Type valacyclovir 500 mg tablet 500 mg PO DAILY 05/03/1908/06/19 History cholecalciferol (vitamin D3) 50 50 mcg PO DAILY 02/12/25 Unknown History mcg (2,000 unit) capsule <Bronwyn Nash, TOUR SALES REPRESENTATIVE - Last Filed: 03/06/25 17:38> Allergies/adverse reactions: Allergies Allergy/AdvReac Type Severity Reaction Status Date / Time No Known Allergies Allergy Unknown Verified 03/06/25 17:14 <Bronwyn Nash, TOUR SALES REPRESENTATIVE - Last Filed: 03/06/25 17:38> Review of Systems 2 Review of Systems: A 10 system review of systems was completed on the patient and is negative except for what is stated in the HPI. Nursing and ancillary documentation was reviewed. <Jayson Schuster DO - Last Filed: 03/06/25 21:24> PMFSH Past Medical History Medical History: Medical History Benign head tremor Essential hypertension Hemorrhoids <Bronwyn Hammer September, - Last Filed: 03/06/25 17:38> Surgical History Surgical History: Surgical History History of left knee replacement (~06/2023) No significant past surgical history <Bronwyn Hammer September, Last Filed: 03/06/25 17:38> Family History Family History: Family History Sibling DVT (deep venous thrombosis) Acute myocardial infarction Father DVT (deep venous thrombosis) Acute myocardial infarction Mother Lung cancer <Bronwyn Hammer September, Last Filed: 03/06/25 17:38> Social History Social History: Social History Smoking status: Never smoker Second hand tobacco smoke exposure: No Alcohol intake: current Alcohol use details: rarely Substance use: never Substance use type: does not use Lack of Transportation: No Lack of Food: Never True Current Housing: I Have Housing Concerned About Future Housing: No Difficulty Paying Gas/Electric Bills: No Difficulty Paying for Meds: No Currently Unemployed: No Education: Bachelor's Degree Difficulty w/ Childcare or Family Care: No Living arrangements: with family Spiritual care concerns: No <Bronwyn Hammer September, Last Filed: 03/06/25 17:38> Exam 2 Narrative: CONST: Mild acute distress. Well nourished. HENMT: Head is normocephalic and atraumatic. Moist mucous membranes. No posterior oropharynx erythema. EYES: No scleral icterus. No conjunctival injection or pallor. PERRL. NECK: No meningeal signs. RESP: Able to speak in full sentences. Normal respiratory effort. CTAB. CARDIO: Regular rate. Regular rhythm. 2+ DP and radial pulses bilaterally. GI: Nondistended. mild tenderness palpation in the right lower quadrant and epigastrium. No rebound or guarding or rigidity. : No CVA tenderness to palpation. SKIN: No rashes or lesions noted on exposed skin. NEURO: Oriented x3. Moves all extremities. EXTREM/MSK/BACK: No pedal edema. No focal tenderness to palpation of the midline of the vertebra or any palpable step-offs. PSYCH: Normal affect. <Jayson Schuster DO - Last Filed: 03/06/25 21:24> Course Vital Signs Vital signs: Vital Signs Temperature 97.7 F 03/06/25 17:45 Pulse Rate 75 03/06/25 17:45 Respiratory Rate 18 03/06/25 17:45 Blood Pressure 139/60 03/06/25 17:45 Pulse Oximetry 99 03/06/25 17:45 Oxygen Delivery Room Air 03/06/25 17:45 Temperature 97.7 F 03/06/25 17:45 Pulse Rate 81 03/06/25 20:33 Respiratory Rate 15 03/06/25 20:33 Blood Pressure 134/77 03/06/25 20:33 Pulse Oximetry 93 03/06/25 20:33 Oxygen Delivery Room Air 03/06/25 17:45 <Bronwyn Nash, TOUR SALES REPRESENTATIVE - Last Filed: 03/06/25 17:38> Vital Signs Temperature 97.7 F 03/06/25 17:45 Pulse Rate 75 03/06/25 17:45 Respiratory Rate 18 03/06/25 17:45 Blood Pressure 139/60 03/06/25 17:45 Pulse Oximetry 99 03/06/25 17:45 Oxygen Delivery Room Air 03/06/25 17:45 Temperature 97.7 F 03/06/25 17:45 Pulse Rate 81 03/06/25 20:33 Respiratory Rate 15 03/06/25 20:33 Blood Pressure 134/77 03/06/25 20:33 Pulse Oximetry 93 03/06/25 20:33 Oxygen Delivery Room Air 03/06/25 17:45 <Jayson Schuster DO - Last Filed: 03/06/25 21:24> Medical Decision Making MDM Narrative Medical decision making narrative: Patient presents with the above complaint. Initial vitals are remarkable for no significant abnormalities. Physical examination as noted above. DDx: Appendicitis, peptic ulcer disease, gastritis, hepatobiliary pathology, ACS, bowel obstruction, constipation, other acute surgical abdominal process. Plan discussed: laboratory analysis, EKG, imaging. Patient ordered IVF, analgesia, antiemetic, antacid. 20:24 - General surgery contacted. Dr. Chavez notes to place the patient on Zosyn and admit to the hospitalist, will see the patient in consultation. 20: 50 - I spoke with the hospitalist on-call who has accepted the patient for admission, does note that he wants neurosurgery be contacted to give recommendations in terms of the T10 compression fracture, will contact Neurosurgery. 21:05- Spoke with Neurosurgery on-call who notes he will see the patient on consultation. <Jayson Schuster DO - Last Filed: 03/06/25 21:24> Medical Records Medical records reviewed: Yes I reviewed the external patient's medical records. <Jayson Schuster DO - Last Filed: 03/06/25 21:24> Vital Signs Vital Signs: Vital Signs Temperature 97.7 F 03/06/25 17:45 Pulse Rate 75 03/06/25 17:45 Respiratory Rate 18 03/06/25 17:45 Blood Pressure 139/60 03/06/25 17:45 Pulse Oximetry 99 03/06/25 17:45 Oxygen Delivery Room Air 03/06/25 17:45 Temperature 97.7 F 03/06/25 17:45 Pulse Rate 81 03/06/25 20:33 Respiratory Rate 15 03/06/25 20:33 Blood Pressure 134/77 03/06/25 20:33 Pulse Oximetry 93 03/06/25 20:33 Oxygen Delivery Room Air 03/06/25 17:45 <Bronwyn Nash, TOUR SALES REPRESENTATIVE - Last Filed: 03/06/25 17:38> Vital Signs Temperature 97.7 F 03/06/25 17:45 Pulse Rate 75 03/06/25 17:45 Respiratory Rate 18 03/06/25 17:45 Blood Pressure 139/60 03/06/25 17:45 Pulse Oximetry 99 03/06/25 17:45 Oxygen Delivery Room Air 03/06/25 17:45 Temperature 97.7 F 03/06/25 17:45 Pulse Rate 81 03/06/25 20:33 Respiratory Rate 15 03/06/25 20:33 Blood Pressure 134/77 03/06/25 20:33 Pulse Oximetry 93 03/06/25 20:33 Oxygen Delivery Room Air 03/06/25 17:45 <Jayson Schuster DO - Last Filed: 03/06/25 21:24> Lab Data Lab results reviewed: Yes I reviewed the patient's lab results. <Jayson Schuster DO - Last Filed: 03/06/25 21:24> Lab results narrative: CBC reveals a white blood cell count of 13.6. Comprehensive metabolic panel reveals a glucose of 116. Lactic acid is 1.3. Lipase is 155. Urinalysis reveals trace ketones and trace leukocyte esterase. Troponin is less than 0.012. CRP is less than 0.5. <Jayson Schuster DO - Last Filed: 03/06/25 21:24> Result diagrams: 03/06/25 17:42 03/06/25 17:42 <Bronwyn Nash APRN - Last Filed: 03/06/25 17:38> Labs: Lab Results 03/06/25 Range/Units 17:42 WBC 13.6 H (4.5-10.0) K/mm3 RBC 4.28 (4.2-5.4) M/mm3 Hgb 12.7 (12.0-15.0) g/dL Hct 39.4 (37.0-47.0) % MCV 92.1 (80-100) fl MCH 29.7 (26-34) pg MCHC 32.2 (32-36) g/dl RDW 13.0 (11.5-14.5) % Plt Count 243 (150-375) k/mm3 MPV 10.7 H (7.4-10.4) fl Immature Gran % (Auto) 0.3 (0-0.5) % Neut % (Auto) 77.4 H (45.5-73.1) % Lymph % (Auto) 16.1 L (18.3-44.2) % [place] % (Auto) 4.8 (2.6-8.5) % Eos % (Auto) 1.2 (0-4.4) % Baso % (Auto) 0.2 (0.2-1.2) % Lymph # (Auto) 2.19 (0.9-3.2) K/mm3 [place] # (Auto) 0.7 H (0.1-0.6) K/mm3 Eos # (Auto) 0.2 (0-0.3) K/mm3 Baso # (Auto) 0.0 (0.0-0.1) K/mm3 Abs Immat Gran (auto) 0.04 H (0.00-0.031) K/mm3 Absolute Neuts (auto) 10.6 H (1.3-6.7) K/mm3 Absolute Nucleated RBC 0.000 (0.0-0.012) K/mm3 Nucleated RBC % 0.0 (0.0-0.2) % Sodium 137 (137-145) mmol/L Potassium 4.1 (3.4-5.0) mmol/L Chloride 102 (98-107) mmol/L Carbon Dioxide 27 (22-30) mmol/L Anion Gap 8 (4-12) mmol/L BUN 16 (7-17) mg/dL Creatinine 0.56 L (0.7-1.0) mg/dL Estim Creat Clear Calc 76 ml/min Estimated GFR > 60 (59 - ) Glucose 116 H (65-110) mg/dL Lactic Acid 1.3 (0.7-2.0) mmol/L Calcium 9.4 (8.4-10.2) mg/dL Magnesium 1.7 (1.6-2.3) mg/dL Total Bilirubin 0.4 (0.2-1.3) mg/dL AST 32 (14-36) U/L ALT 28 (6-35) U/L Alkaline Phosphatase 114 (38-126) U/L Troponin I < 0.012 (0.000-0.034) ng/mL C-Reactive Protein < 0.5 (<1.0) mg/dL Total Protein 7.6 (6.3-8.2) g/dL Albumin 4.3 (3.5-5.1) g/dL Lipase 155 (23-300) U/L Urine Color Yellow (Yellow) Urine Appearance Clear (Clear) Urine pH 5.0 (5.0-9.0) Ur Specific [place] 1.015 (1.001-1.035) Urine Protein Negative (Negative) mg/dL Urine Glucose (UA) Negative (Negative) mg/dL Urine Ketones Trace H (Negative) mg/dL Ur Blood (Man) Negative (Negative) Urine Nitrate Negative (Negative) Urine Bilirubin Negative (Negative) Urine Urobilinogen 0.2 (<2.0) mg/dL Leukocyte Esterase Rfl Trace H (Negative) STEPHANIE/UL Urine RBC 0-2 (0-2) /hpf Urine WBC 0-5 (0-3) /hpf Ur Squamous Epith Cells None seen (Few) /hpf Urine Bacteria None seen /hpf Urine Casts 0-2 <Bronwyn Nash, TOUR SALES REPRESENTATIVE - Last Filed: 03/06/25 17:38> Lab Results 03/06/25 Range/Units 17:42 WBC 13.6 H (4.5-10.0) K/mm3 RBC 4.28 (4.2-5.4) M/mm3 Hgb 12.7 (12.0-15.0) g/dL Hct 39.4 (37.0-47.0) % MCV 92.1 (80-100) fl MCH 29.7 (26-34) pg MCHC 32.2 (32-36) g/dl RDW 13.0 (11.5-14.5) % Plt Count 243 (150-375) k/mm3 MPV 10.7 H (7.4-10.4) fl Immature Gran % (Auto) 0.3 (0-0.5) % Neut % (Auto) 77.4 H (45.5-73.1) % Lymph % (Auto) 16.1 L (18.3-44.2) % [place] % (Auto) 4.8 (2.6-8.5) % Eos % (Auto) 1.2 (0-4.4) % Baso % (Auto) 0.2 (0.2-1.2) % Lymph # (Auto) 2.19 (0.9-3.2) K/mm3 [place] # (Auto) 0.7 H (0.1-0.6) K/mm3 Eos # (Auto) 0.2 (0-0.3) K/mm3 Baso # (Auto) 0.0 (0.0-0.1) K/mm3 Abs Immat Gran (auto) 0.04 H (0.00-0.031) K/mm3 Absolute Neuts (auto) 10.6 H (1.3-6.7) K/mm3 Absolute Nucleated RBC 0.000 (0.0-0.012) K/mm3 Nucleated RBC % 0.0 (0.0-0.2) % Sodium 137 (137-145) mmol/L Potassium 4.1 (3.4-5.0) mmol/L Chloride 102 (98-107) mmol/L Carbon Dioxide 27 (22-30) mmol/L Anion Gap 8 (4-12) mmol/L BUN 16 (7-17) mg/dL Creatinine 0.56 L (0.7-1.0) mg/dL Estim Creat Clear Calc 76 ml/min Estimated GFR > 60 (59 - ) Glucose 116 H (65-110) mg/dL Lactic Acid 1.3 (0.7-2.0) mmol/L Calcium 9.4 (8.4-10.2) mg/dL Magnesium 1.7 (1.6-2.3) mg/dL Total Bilirubin 0.4 (0.2-1.3) mg/dL AST 32 (14-36) U/L ALT 28 (6-35) U/L Alkaline Phosphatase 114 (38-126) U/L Troponin I < 0.012 (0.000-0.034) ng/mL C-Reactive Protein < 0.5 (<1.0) mg/dL Total Protein 7.6 (6.3-8.2) g/dL Albumin 4.3 (3.5-5.1) g/dL Lipase 155 (23-300) U/L Urine Color Yellow (Yellow) Urine Appearance Clear (Clear) Urine pH 5.0 (5.0-9.0) Ur Specific [place] 1.015 (1.001-1.035) Urine Protein Negative (Negative) mg/dL Urine Glucose (UA) Negative (Negative) mg/dL Urine Ketones Trace H (Negative) mg/dL Ur Blood (Man) Negative (Negative) Urine Nitrate Negative (Negative) Urine Bilirubin Negative (Negative) Urine Urobilinogen 0.2 (<2.0) mg/dL Leukocyte Esterase Rfl Trace H (Negative) STEPHANIE/UL Urine RBC 0-2 (0-2) /hpf Urine WBC 0-5 (0-3) /hpf Ur Squamous Epith Cells None seen (Few) /hpf Urine Bacteria None seen /hpf Urine Casts 0-2 <Jayson Schuster DO - Last Filed: 03/06/25 21:24> Imaging Data Attestation: I personally reviewed and interpreted this imaging study as follows: < Jayson Schuster DO - Last Filed: 03/06/25 21:24> Radiologist's impression: IMPRESSION: 1. Diameter of the appendix is increased from 5 mm in diameter on the study from one month prior to currently measuring 10 mm. This raises some concern for acute appendicitis although there is no surrounding inflammatory stranding to more specifically suggest this. 2. Acute to subacute T10 compression fracture with 20% anterior vertebral body height loss which is new since the study from one month prior. <Jayson Schuster DO - Last Filed: 03/06/25 21:24> ECG Data EKG #1: Attestation: I personally reviewed and interpreted this ECG as follows: <Jayson Schuster DO - Last Filed: 03/06/25 21:24> ECG completion date: 03/06/25 <Jayson Schuster DO - Last Filed: 03/06/25 21:24> ECG completion time: 20:41 <Jayson Schuster DO - Last Filed: 03/06/25 21:24> Interpretation: Rate of 70, rhythm is normal sinus rhythm, axis is normal, no ST elevations or depressions, no T-wave abnormalities, no ischemic pattern on EKG, no old EKG on file for comparison. <Jayson Schuster DO - Last Filed: 03/06/25 21:24> Discharge Plan Discharge Clinical Impression: Acute appendicitis, Compression fracture of T10 vertebra <Bronwyn Nash, TOUR SALES REPRESENTATIVE - Last Filed: 03/06/25 17:38> Patient Disposition: Still a Patient <Bronwyn Nash TOUR SALES REPRESENTATIVE - Last Filed: 03/06/25 17:38> Condition: Stable <Bronwyn Nash TOUR SALES REPRESENTATIVE - Last Filed: 03/06/25 17:38> Instructions: Antibiotic Form <Bronwyn Nash, TOUR SALES REPRESENTATIVE - Last Filed: 03/06/25 17:38> Patient Language: Bulgarian <Bronwyn Nash APRN - Last Filed: 03/06/25 17:38> Prescriptions: No Action valacyclovir 500 mg tablet 500 mg PO DAILY cholecalciferol (vitamin D3) 50 mcg (2,000 unit) capsule 50 mcg PO DAILY cyclobenzaprine 10 mg tablet 10 mg PO TID PRN (Reason: muscle spasm) Qty: 14 0RF lisinopril 10 mg tablet 10 mg PO DAILY Qty: 90 1RF <Bronwyn Nash TOUR SALES REPRESENTATIVE - Last Filed: 03/06/25 17:38> Follow-up/Referrals: Fabiola Bradne PA-C [Primary Care Provider, Family Practice] <Bronwyn Nash APRN - Last Filed: 03/06/25 17:38> Time of Disposition: 21:10 <Bronwyn Nash APRN - Last Filed: 03/06/25 17:38> 21:10 <Jayson Schuster DO - Last Filed: 03/06/25 21:24>
[2025-03-06 17:45] VITALS: BP 139/60; PULSE 75; RESP 18; TEMP 36.5; O2SAT 99
[2025-03-06 17:55] LABS: Hematocrit 39.4 % (37.0-47.0); Hemoglobin 12.7 g/dL (12.0-15.0); Immature Granulocyte Percent A 0.3 % (0-0.5); Lymphocytes Absolute Auto 2.19 K/mm3 (0.9-3.2); Mean Corpuscular HGB Conc 32.2 g/dl (32-36); Mean Corpuscular Hemoglobin 29.7 pg (26-34); Mean Corpuscular Volume 92.1 fl (80-100); Nucleated Red Blood Cells Absolute Auto 0.000 K/mm3 (0.0-0.012); Nucleated Red Blood Cells Perc 0.0 % (0.0-0.2); Platelet Count Result 243 k/mm3 (150-375); Red Blood Count 4.28 M/mm3 (4.2-5.4); White Blood Count 13.6 K/mm3 (4.5-10.0)
[2025-03-06 17:58] LABS: Add Urine Microscopic? YES; Appearance Urine Clear (Clear); Glucose Urine UA Negative (Negative); Leukocyte Esterase Ur Trace LEU/UL (Negative); Nitrate Urine Negative (Negative); Non Pathogenic Casts 0-2; Specific Grav Ur 1.015 (1.001-1.035)
[2025-03-06 18:07] LABS: Alanine Aminotransferase 28 U/L (6-35); Albumin Level 4.3 g/dL (3.5-5.1); Alkaline Phosphatase 114 U/L (38-126); Anion Gap 8 mmol/L (4-12); Aspartate Amino Transferase 32 U/L (14-36); Bilirubin,Total 0.4 mg/dL (0.2-1.3); Blood Urea Nitrogen 16 mg/dL (7-17); Calcium 9.4 mg/dL (8.4-10.2); Carbon Dioxide 27 mmol/L (22-30); Chloride 102 mmol/L (98-107); Estimated CRCL calculation 76 ml/min; Estimated Glomerular Filt Rate > 60; Glucose 116 mg/dL (65-110); Lipase 155 U/L (23-300); Potassium 4.1 mmol/L (3.4-5.0); Sodium 137 mmol/L (137-145); Total Protein 7.6 g/dL (6.3-8.2)
[2025-03-06] MEDS: ONDANSETRON INJ 4 MG/2 ML VIAL IV PUSH (20:21)
[2025-03-06] MEDS: fentaNYL CITRATE INJ (*CRX) 100 MCG/2 ML VIAL 50 MCG IV PUSH (20:21)
[2025-03-06] MEDS: PANTOPRAZOLE SODIUM IV 40 MG VIAL IV PUSH (20:21)
--- NOTE | 2025-03-06 20:22 | ECG_ITS ---
Test Date: 2025-03-06 20:41:05 Measurements Intervals [place] Rate: 78 P: 73 IA: 168 QRS: 56 QRSD: 97 T: 63 QT: 395 QTc: 452 Interpretive Statements SINUS RHYTHM BASELINE ARTIFACT- I, III NORMAL ECG No previous ECG available for comparison Electronically Signed On 03-07-2025 06:22:42 CDT by Josias Ceballos D.O.
[2025-03-06 20:33] VITALS: BP 134/77; PULSE 81; RESP 15; O2SAT 93
[2025-03-06] MEDS: SODIUM CHLORIDE 0.9% IV 1,000 ML 999 ML IV CONT (20:42)
[2025-03-06 20:47] LABS: CRP < 0.5 mg/dL (<1.0); Magnesium 1.7 mg/dL (1.6-2.3)
[2025-03-06 20:49] LABS: Troponin I < 0.012 ng/mL (0.000-0.034)
[2025-03-06] MEDS: PIPERACILLIN/TAZOBACTAM SOD 3.375 GM in SODIUM CHLORIDE 0.9% IV 50 ML 100 ML IVPB (21:47)
[2025-03-06] MEDS: HYDROmorphone HCL INJ (*CRX) 1 MG/ML SYR 0.5 MG IV PUSH (22:20)
[2025-03-06 22:26] VITALS: BP 130/82; PULSE 86; RESP 18; O2SAT 95
[2025-03-06 22:30] VITALS: BP 130/82; PULSE 86; RESP 18; O2SAT 95
--- NOTE | 2025-03-06 22:49 | P.HP_ITS ---
H&P: HPI History of Present Illness Date/Time: 03/06/25 22:49 Chief Complaint: Right lower quadrant abdominal pain, nausea and vomiting Narrative: 69 year female with PMH hypertension presents to [facility] ER on 03/06/2025 complaining of right lower quadrant pain which started suddenly after eating around noon and associated with nausea and vomiting. She has never had any abdominal surgeries. Denies diarrhea, shortness of breath, chest pain, fever. She presented to [facility] ER 02/03/2025 with lower back pain. She did not have a fall or trauma. At that time she was discharged after CT abdomen pelvis without acute findings. Since then she has been doing physical therapy as prescribed by her PCP. Her pain has been persistent. On this repeat occasion she had a abdomen pelvis CT with contrast was demonstrates the following: IMPRESSION: 1. Diameter of the appendix is increased from 5 mm in diameter on the study from one month prior to currently measuring 10 mm. This raises some concern for acute appendicitis although there is no surrounding inflammatory stranding to more specifically suggest this. 2. Acute to subacute T10 compression fracture with 20% anterior vertebral body height loss which is new since the study from one month prior. General surgery and Neurosurgery were both contacted from the ER, agreed to consult upon admission. Patient was given Zofran, fentanyl 50 mcg IV push x1, Protonix, 1 L normal saline bolus, Zosyn 3.37 g IV x1. He was resting comfortably thereafter. Review of Systems Review of Systems: All systems reviewed & are unremarkable except as noted in HPI and below (Subjective) [facility] Past Medical History Medical History Benign head tremor Essential hypertension Hemorrhoids Surgical History Surgical History History of left knee replacement (~06/2023) No significant past surgical history Family History Family History Sibling DVT (deep venous thrombosis) Acute myocardial infarction Father DVT (deep venous thrombosis) Acute myocardial infarction Mother Lung cancer Social History Social History Smoking status: Never smoker Second hand tobacco smoke exposure: No Alcohol intake: current Alcohol use details: rarely Substance use: never Substance use type: does not use Lack of Transportation: No Lack of Food: Never True Current Housing: I Have Housing Concerned About Future Housing: No Difficulty Paying Gas/Electric Bills: No Difficulty Paying for Meds: No Currently Unemployed: No Education: Bachelor's Degree Difficulty w/ Childcare or Family Care: No Living arrangements: with family Spiritual care concerns: No Meds Home Medications and Allergies Home Medications ?Medication ?Instructions ?Recorded ?Confirmed ?Type valacyclovir 500 mg tablet 500 mg PO DAILY 05/03/19 History cholecalciferol (vitamin D3) 50 50 mcg PO DAILY 02/12/25 History mcg (2,000 unit) capsule lisinopril 10 mg tablet 10 mg PO HS 03/06/25 5 History Allergies Allergy/AdvReac Type Severity Reaction Status Date / Time No Known Allergies Allergy Unknown Verified 03/06/25 22:58 Vital Signs Vital Signs - 24 hr 03/06/25 17:45 03/06/25 20:33 03/06/25 22:26 Temperature 97.7 F Pulse Rate 75 81 86 Respiratory Rate 18 15 18 Blood Pressure 139/60 134/77 130/82 Pulse Oximetry 99 93 95 Oxygen Delivery Room Air 03/06/25 22:30 Temperature Pulse Rate 86 Respiratory Rate 18 Blood Pressure 130/82 Pulse Oximetry 95 Oxygen Delivery Exam Const: General: comfortable and no acute distress Other: A&O x3 HENMT: Mouth: Yes moist mucous membranes Eyes: Pupils: Equal, round and reactive pupils present Neck: Neck: supple Resp: Effort & Inspection: normal respiratory effort Auscultation: clear to auscultation bilaterally Cardio: Rate: regular rate Rhythm: regular rhythm Heart sounds: no murmurs GI: Inspection: non-distended GI Palp: Yes Soft to palpation, No Tenderness to palpation present (GI) and No Guarding due to palpation present (GI) Other: No pain post fentanyl administration : General: Yes bladder normal to palpation Neuro: Motor exam (neuro): 5/5 motor strength present throughout Extrem: General: no edema Psych: Mental Status: mental status grossly normal H&P: Results Labs Labs: Short CBC 03/06/25 Range/Units 17:42 WBC 13.6 H (4.5-10.0) K/mm3 Hgb 12.7 (12.0-15.0) g/dL Hct 39.4 (37.0-47.0) % Plt Count 243 (150-375) k/mm3 BMP 03/06/25 17:42 Sodium 137 Potassium 4.1 Chloride 102 Carbon Dioxide 27 BUN 16 Creatinine 0.56 L Glucose 116 H Calcium 9.4 Cardiac Enzymes 03/06/25 Range/Units 17:42 Troponin I < 0.012 (0.000-0.034) ng/mL Liver Function 03/06/25 Range/Units 17:42 Total Bilirubin 0.4 (0.2-1.3) mg/dL AST 32 (14-36) U/L ALT 28 (6-35) U/L Alkaline Phosphatase 114 (38-126) U/L Albumin 4.3 (3.5-5.1) g/dL Urine 03/06/25 Range/Units 17:42 Urine Color Yellow (Yellow) Urine Appearance Clear (Clear) Urine pH 5.0 (5.0-9.0) Ur Specific [place] 1.015 (1.001-1.035) Urine Protein Negative (Negative) mg/dL Urine Glucose (UA) Negative (Negative) mg/dL Assessment and Plan Assessment and plan (1) Essential hypertension: Code(s): I10 - Essential (primary) hypertension Status: Acute (2) Compression fracture of T10 vertebra: Qualifiers: Encounter type: initial encounter Qualified Code(s): S22.070A - Wedge compression fracture of T9-T10 vertebra, initial encounter for closed fracture Code(s): S22.070A - Wedge compression fracture of T9-T10 vertebra, initial encounter for closed fracture Status: Acute (3) Acute appendicitis: Qualifiers: Acute appendicitis type: unspecified acute appendicitis type Qualified Code(s): K35.80 - Unspecified acute appendicitis Code(s): K35.80 - Unspecified acute appendicitis Status: Acute Plan 69 year female with PMH hypertension presents to [facility] ER on 03/06/2025 complaining of right lower quadrant pain which started suddenly after eating around noon and associated with nausea and vomiting. She has never had any abdominal surgeries. Denies diarrhea, shortness of breath, chest pain, fever. She presented to [facility] ER 02/03/2025 with lower back pain. She did not have a fall or trauma. At that time she was discharged after CT abdomen pelvis without acute findings. Since then she has been doing physical therapy as prescribed by her PCP. Her pain has been persistent. On this repeat occasion she had a abdomen pelvis CT with contrast was demonstrates the following: IMPRESSION: 1. Diameter of the appendix is increased from 5 mm in diameter on the study from one month prior to currently measuring 10 mm. This raises some concern for acute appendicitis although there is no surrounding inflammatory stranding to more specifically suggest this. 2. Acute to subacute T10 compression fracture with 20% anterior vertebral body height loss which is new since the study from one month prior. General surgery and Neurosurgery were both contacted from the ER, agreed to consult upon admission. Patient was given Zofran, fentanyl 50 mcg IV push x1, Protonix, 1 L normal saline bolus, Zosyn 3.37 g IV x1. He was resting comfortably thereafter. ----- Protonix 40 mg IV q.a.m., Zosyn 3.375 g q.6 hours, normal saline at 125 cc/hour, Dilaudid 0.5 mg IV q.4 hours p.r.n.. Leukocytosis: Continue to trend NPO. Full code. Bed rest. General surgery consult, neurosurgery consult. Hospitalist [facility] Advance Care Plan I have confirmed that the patient's Advanced Care Plan is present, code status is documented, or surrogate decision maker is listed in patient medical record.: Yes Medication Reconciliation I have utilized all available resources to obtain, update and review the patients current medications (includes all prescriptions, OTC, herbals, cannabis, and nutritional supplements).: Yes
[2025-03-06 22:54] VITALS: BMI 26.2
[2025-03-07] VITALS (14 sets, daily range): BP systolic 95–119; BP diastolic 43–58; PULSE 65–95; RESP 12–18; TEMP 36–36.9; O2SAT 95–100
[2025-03-07] MEDS: ONDANSETRON INJ 4 MG/2 ML VIAL IV PUSH (00:15)
[2025-03-07] MEDS: SODIUM CHLORIDE 0.9% IV 1,000 ML 125 ML IV CONT ×3 (00:16→23:12)
--- NOTE | 2025-03-07 01:05 | PC.NURSE ---
PATIENT ARRIVED ON 3 MEDSURG AT [id number]
[2025-03-07] MEDS: PIPERACILLIN/TAZOBACTAM SOD 3.375 GM in SODIUM CHLORIDE 0.9% IV 50 ML 100 ML IVPB ×4 (05:02→23:57)
[2025-03-07] MEDS: HYDROmorphone HCL INJ (*CRX) 1 MG/ML SYR 0.5 MG IV PUSH ×2 (05:43→10:54)
--- NOTE | 2025-03-07 07:32 | WPDNEUROSGCN ---
Assessment and Plan Assessment and plan (1) Compression fracture of T10 vertebra: Qualifiers: Encounter type: initial encounter Qualified Code(s): S22.070A - Wedge compression fracture of T9-T10 vertebra, initial encounter for closed fracture Code(s): S22.070A - Wedge compression fracture of T9-T10 vertebra, initial encounter for closed fracture Status: Acute Plan This is a 69-year-old female with an incidental finding of a T10 slight compression fracture without any significant retropulsion on CT scan. She is neurologically intact without nerve any signs or symptoms of spinal cord or nerve compression. I suspect this is due to progression of her osteopenia. I recommend she follow-up with her primary care doctor for her repeat bone density scan and evaluation of osteoporosis as well as management of osteoporosis. If necessary she may need to see a bone health specialist. I have provided her with a TLSO brace this will allow her to have additional support when she is ambulating. She only needs to wear the brace when she is up and moving she does not need to wear it when she is sitting down or lying in bed. She should maintain this brace and follow up with nurse practitioner Gema Mcbride in clinic in 6 weeks with repeat AP lateral lumbar spine x-rays. I explained the natural history of these fractures to the patient and she understood the treatment plans and had no further questions. Consult date: 03/07/25 Reason for consult: Evaluation of T10 compression fracture HPI: Arianna Hillman is a 69 year old female who is primarily admitted for evaluation of abdominal pain found to have possible appendicitis. She notes that she does have history of back pain recently couple weeks ago where she presented to the emergency room and had a CT scan as well as x-rays from her primary care physician which did not identify a fracture at that time however she did have back pain around the T10 region. She did not fall she has no history of trauma. She does note that she has a history of osteopenia and was told to take Caltrate. She denies any numbness tingling weakness shooting pain into her lower extremities. Her main complaint today is abdominal pain. But due to the incidental finding of this fracture was asked to consult and make some recommendations. Review of Systems Review of Systems: Full review of systems was performed and negative other than what is listed in history of presenting illness [facility] Past Medical History Medical History Benign head tremor Essential hypertension Hemorrhoids Surgical History Surgical History History of left knee replacement (~06/2023) No significant past surgical history Family History Family History Sibling DVT (deep venous thrombosis) Acute myocardial infarction Father DVT (deep venous thrombosis) Acute myocardial infarction Mother Lung cancer Social History Social History Smoking status: Never smoker Second hand tobacco smoke exposure: No Alcohol intake: current Drinks per week: 1 Alcohol use details: rarely Substance use: never Substance use type: does not use Lack of Transportation: No Lack of Food: Never True Current Housing: I Have Housing Concerned About Future Housing: No Difficulty Paying Gas/Electric Bills: No Difficulty Paying for Meds: No Currently Unemployed: No Education: Bachelor's Degree Difficulty w/ Childcare or Family Care: No Living arrangements: with family Spiritual care concerns: No Meds Home Medications and Allergies Home Medications ?Medication ?Instructions ?Recorded ?Confirmed ?Type valacyclovir 500 mg tablet 500 mg PO HS 05/03/19 03/06/25 History cholecalciferol (vitamin D3) 50 50 mcg PO HS 11/11/20 03/06/25 History mcg (2,000 unit) capsule lisinopril 10 mg tablet 10 mg PO HS 03/06/25 03/06/25 History Allergies Allergy/AdvReac Type Severity Reaction Status Date / Time No Known Allergies Allergy Unknown Verified 03/06/25 22:58 Vital Signs Vital Signs - 24 hr 03/06/25 17:45 03/06/25 20:33 03/06/25 22:26 Temperature 97.7 F Pulse Rate 75 81 86 Respiratory Rate 18 15 18 Blood Pressure 139/60 134/77 130/82 Pulse Oximetry 99 93 95 Oxygen Delivery Room Air 03/06/25 22:30 03/07/25 01:04 03/07/25 06:00 Temperature 98.5 F Pulse Rate 86 95 Respiratory Rate 18 16 Blood Pressure 130/82 119/53 L Pulse Oximetry 95 100 Oxygen Delivery Room Air Exam Narrative: She is awake alert no acute distress she moves her bilateral lower extremities full strength including iliopsoas, quadriceps, hamstrings, plantar flexors, dorsiflexors, EHL. She has no clonus noted. Results Labs 03/06/25 17:42 03/06/25 17:42 Labs: Short CBC 03/06/25 Range/Units 17:42 WBC 13.6 H (4.5-10.0) K/mm3 Hgb 12.7 (12.0-15.0) g/dL Hct 39.4 (37.0-47.0) % Plt Count 243 (150-375) k/mm3 BMP 03/06/25 17:42 Sodium 137 Potassium 4.1 Chloride 102 Carbon Dioxide 27 BUN 16 Creatinine 0.56 L Glucose 116 H Calcium 9.4 Cardiac Enzymes 03/06/25 Range/Units 17:42 Troponin I < 0.012 (0.000-0.034) ng/mL Liver Function 03/06/25 Range/Units 17:42 Total Bilirubin 0.4 (0.2-1.3) mg/dL AST 32 (14-36) U/L ALT 28 (6-35) U/L Alkaline Phosphatase 114 (38-126) U/L Albumin 4.3 (3.5-5.1) g/dL Urine 03/06/25 Range/Units 17:42 Urine Color Yellow (Yellow) Urine Appearance Clear (Clear) Urine pH 5.0 (5.0-9.0) Ur Specific [place] 1.015 (1.001-1.035) Urine Protein Negative (Negative) mg/dL Urine Glucose (UA) Negative (Negative) mg/dL
[2025-03-07 07:39] LABS: Hematocrit 33.8 % (37.0-47.0); Hemoglobin 10.9 g/dL (12.0-15.0); Immature Granulocyte Percent A 0.7 % (0-0.5); Lymphocytes Absolute Auto 1.13 K/mm3 (0.9-3.2); Mean Corpuscular HGB Conc 32.2 g/dl (32-36); Mean Corpuscular Hemoglobin 29.9 pg (26-34); Mean Corpuscular Volume 92.6 fl (80-100); Nucleated Red Blood Cells Absolute Auto 0.000 K/mm3 (0.0-0.012); Nucleated Red Blood Cells Perc 0.0 % (0.0-0.2); Platelet Count Result 219 k/mm3 (150-375); Red Blood Count 3.65 M/mm3 (4.2-5.4); White Blood Count 17.8 K/mm3 (4.5-10.0)
[2025-03-07 08:10] LABS: Anion Gap 7 mmol/L (4-12); Blood Urea Nitrogen 10 mg/dL (7-17); Calcium 8.4 mg/dL (8.4-10.2); Carbon Dioxide 26 mmol/L (22-30); Chloride 101 mmol/L (98-107); Estimated CRCL calculation 66 ml/min; Estimated Glomerular Filt Rate > 60; Glucose 121 mg/dL (65-110); Magnesium 1.8 mg/dL (1.6-2.3); Potassium 3.7 mmol/L (3.4-5.0); Sodium 134 mmol/L (137-145)
--- NOTE | 2025-03-07 08:22 | P.PNIM_ITS ---
Progress Note: A&P Assessment and Plan (1) Acute appendicitis: Qualifiers: Acute appendicitis type: unspecified acute appendicitis type Qualified Code(s): K35.80 - Unspecified acute appendicitis Code(s): K35.80 - Unspecified acute appendicitis Status: Acute Assessment and Plan: * Monitor vital signs, I and O's, check stool output, neuro status and patient is a fall risk * Monitor serum electrolytes and CBC * IV pain management * Gentle IV fluid resuscitation * Start Zosyn 3.375 mg every 6 hours * Consult general surgery for further evaluation, appreciate assistance and recommendation * Diet:NPO * Scheduled for this afternoon for laparoscopic appendectomy (2) Essential hypertension: Code(s): I10 - Essential (primary) hypertension Status: Acute Assessment and Plan: * Patient's blood pressure was reviewed on 03/07 * Blood pressure remains well controlled * Will continue current medications (3) Compression fracture of T10 vertebra: Qualifiers: Encounter type: initial encounter Qualified Code(s): S22.070A - Wedge compression fracture of T9-T10 vertebra, initial encounter for closed fracture Code(s): S22.070A - Wedge compression fracture of T9-T10 vertebra, initial encounter for closed fracture Status: Acute Assessment and Plan: * Abdomen/pelvis CT: 1. Diameter of the appendix is increased from 5 mm in diameter on the study from one month prior to currently measuring 10 mm. This raises some concern for acute appendicitis although there is no surrounding inflammatory stranding to more specifically suggest this. 2. Acute to subacute T10 compression fracture with 20% anterior vertebral body height loss which is new since the study from one month prior. * Neurosurgery consulted * Recommend follow-up with PCP regarding possible repeat bone density scan in evaluation of osteoporosis * May need bone health specialist * Will order a TLSO brace * Follow-up with office in 6 weeks with repeat AP lateral lumbar spine x-rays Subjective Date/time seen: 03/07/25 08:22 Interval history: 69 year female with PMH hypertension presents to [facility] ER on 03/06/2025 complaining of right lower quadrant pain which started suddenly after eating around noon and associated with nausea and vomiting. She has never had any abdominal surgeries. 03/07/2025 Patient sitting comfortably in bed at time of examination. Dr. Ospina of General surgery was in room at time of examination. Planning on getting patient in for laparoscopic appendectomy today in the afternoon. Neurosurgery consulted regarding compression fracture of T10 - recommend TSLO brace, follow up with bone health specialist/PCP regarding evaluation of osteoporosis. Review of Systems Review of Systems: All systems reviewed & are unremarkable except as noted in HPI and below (Subjective) Exam Const: General: comfortable and no acute distress Other: A&O x3 HENMT: Mouth: Yes moist mucous membranes Eyes: Pupils: Equal, round and reactive pupils present Neck: Neck: supple Resp: Effort & Inspection: normal respiratory effort Auscultation: clear to auscultation bilaterally Cardio: Rate: regular rate Rhythm: regular rhythm Heart sounds: no murmurs GI: Inspection: non-distended Other: No pain post fentanyl administration : General: Yes bladder normal to palpation Bimanual exam- vagina & uterus: bladder normal to palpation Neuro: Cranial nerves: Yes Equal, round and reactive pupils present Motor exam (neuro): 5/5 motor strength present throughout Extrem: General: no edema Psych: Mental Status: mental status grossly normal Objective Data Vital Signs Vital Signs: Vital Signs - 24 hr 03/06/25 17:45 03/06/25 20:33 03/06/25 22:26 Temperature 97.7 F Pulse Rate 75 81 86 Respiratory Rate 18 15 18 Blood Pressure 139/60 134/77 130/82 Pulse Oximetry 99 93 95 Oxygen Delivery Room Air 03/06/25 22:30 03/07/25 01:04 03/07/25 06:00 Temperature 98.5 F Pulse Rate 86 95 Respiratory Rate 18 16 Blood Pressure 130/82 119/53 L Pulse Oximetry 95 100 Oxygen Delivery Room Air Intake/Output Intake/Output: Intake & Output 03/04/25 03/05/25 03/06/25 03/07/25 23:59 23:59 23:59 23:59 Intake Total 1050 918.8 Output Total 300 Balance 1050 618.8 Meds/Results Medications: Active Medications Generic Name Dose Route Start Last Admin Trade Name Freq PRN Reason Stop Dose Admin Hydromorphone HCl 0.5 mg 03/06/25 21:11 03/07/25 05:43 Hydromorphone Hcl Inj (*Crx) 1 Mg/Ml Syr IV PUSH 0.5 mg Q4H PRN Administration Pain Rated 7-10 Piperacillin Sod/Tazobactam 50 mls @ 100 mls/hr 03/07/25 06:00 03/07/25 05:02 Sod 3.375 gm/ Sodium Chloride IVPB 100 mls/hr Q6H ASUNCION Administration Sodium Chloride 1,000 mls @ 125 mls/hr 03/06/25 21:15 03/07/25 07:37 Normal Saline Iv IV CONT 125 mls/hr .Q8H ASUNCION Administration Ondansetron HCl 4 mg 03/06/25 21:11 03/07/25 00:15 Ondansetron Inj 4 Mg/2 Ml Vial IV PUSH 4 mg Q4H PRN Administration Nausea Pantoprazole Sodium 40 mg 03/07/25 09:00 Pantoprazole Sodium Iv 40 Mg Vial IV PUSH QAM [facility] Radiology Results: ITS Impressions Abdomen/Pelvis CT 03/06/25 19:31 IMPRESSION: 1. Diameter of the appendix is increased from 5 mm in diameter on the study from one month prior to currently measuring 10 mm. This raises some concern for acute appendicitis although there is no surrounding inflammatory stranding to more s pecifically suggest this. 2. Acute to subacute T10 compression fracture with 20% anterior vertebral body height loss which is new since the study from one month prior. Labs Labs: Laboratory Results - last 24 hr 03/06/25 03/07/25 17:42 07:02 WBC 13.6 H 17.8 H RBC 4.28 3.65 L Hgb 12.7 10.9 L Hct 39.4 33.8 L MCV 92.1 92.6 MCH 29.7 29.9 MCHC 32.2 32.2 RDW 13.0 13.0 Plt Count 243 219 MPV 10.7 H 10.2 Immature Gran % (Auto) 0.3 0.7 H Neut % (Auto) 77.4 H 86.5 H Lymph % (Auto) 16.1 L 6.4 L [place] % (Auto) 4.8 6.2 Eos % (Auto) 1.2 0.0 Baso % (Auto) 0.2 0.2 Lymph # (Auto) 2.19 1.13 [place]comb # (Auto) 0.7 H 1.1 H Eos # (Auto) 0.2 0.0 Baso # (Auto) 0.0 0.0 Abs Immat Gran (auto) 0.04 H 0.13 H Absolute Neuts (auto) 10.6 H 15.4 H Absolute Nucleated RBC 0.000 0.000 Nucleated RBC % 0.0 0.0 Sodium 137 134 L Potassium 4.1 3.7 Chloride 102 101 Carbon Dioxide 27 26 Anion Gap 8 7 BUN 16 10 D Creatinine 0.56 L 0.65 L Estim Creat Clear Calc 76 66 Estimated GFR > 60 > 60 Glucose 116 H 121 H Lactic Acid 1.3 Calcium 9.4 8.4 Magnesium 1.7 1.8 Total Bilirubin 0.4 AST 32 ALT 28 Alkaline Phosphatase 114 Troponin I < 0.012 C-Reactive Protein < 0.5 Total Protein 7.6 Albumin 4.3 Lipase 155 Urine Color Yellow Urine Appearance Clear Urine pH 5.0 Ur Specific [place] 1.015 Urine Protein Negative Urine Glucose (UA) Negative Urine Ketones Trace H Ur Blood (Man) Negative Urine Nitrate Negative Urine Bilirubin Negative Urine Urobilinogen 0.2 Leukocyte Esterase Rfl Trace H Urine RBC 0-2 Urine WBC 0-5 Ur Squamous Epith Cells None seen Urine Bacteria None seen Urine Casts 0-2
[2025-03-07] MEDS: PANTOPRAZOLE SODIUM IV 40 MG VIAL IV PUSH (09:22)
--- NOTE | 2025-03-07 10:07 | WPDCN ---
Assessment and Plan Assessment and plan (1) Acute appendicitis: Qualifiers: Acute appendicitis type: unspecified acute appendicitis type Qualified Code(s): K35.80 - Unspecified acute appendicitis Code(s): K35.80 - Unspecified acute appendicitis Status: Acute Assessment and Plan: Patient presented to the ER yesterday with complaints of abdominal pain that started earlier in the day around 12:30 in the afternoon. She also had associated nausea and vomiting. Has not had a bowel movement in 4 days. WBC now elevated to 17.[address] demonstrated increased diameter of the appendix at 10 mm, increased from 5 mm upon last scan about a month ago. Likely appendicitis. Abdominal exam reveals tenderness to palpation of right lower quadrant and lower abdomen. Patient is afebrile. Patient is NPO. She was added to the surgery schedule for laparoscopic appendectomy with Dr. Ospina this afternoon at 3:30. Risks, benefits, and alternatives were discussed with the patient and her at bedside. She is agreeable to proceed with surgery. Of note, she states that she would not want a blood transfusion if need be. Continue IV antibiotics and pain control. (2) Compression fracture of T10 vertebra: Qualifiers: Encounter type: initial encounter Qualified Code(s): S22.070A - Wedge compression fracture of T9-T10 vertebra, initial encounter for closed fracture Code(s): S22.070A - Wedge compression fracture of T9-T10 vertebra, initial encounter for closed fracture Status: Acute Assessment and Plan: Patient has been having back pain for about a month, but never had any abnormality demonstrated on imaging until this presentation. CT demonstrated acute to subacute T10 compression fracture with 20% anterior vertebral body height loss which is new since the study from 1 prior. Last charted DEXA scan was in 2022. T-scores mostly< -1.0. Follow-up with primary care provider. May need referral to specialist. Plan Discussed patient's case and plan of care with Dr. Ospina. HPI Data of Consult Date/Time: 03/07/25 10:07 Requesting Physician: Jessica Robles MD Primary Care Provider: Fabiola Braden PA-C Consult Narrative Reason for consult: appendicitis Narrative: Arianna Hillman is a 69 year old female who we omer have been asked to see in surgical consultation for appendicitis. Patient states that epigastric pain started around 12:30 p.m. yesterday after eating lunch. She states that she had soup Dom planes which had some stephen in the. She states that she sometimes does get upset stomach from stephen. However, pain was unremitting and started to migrate to her lower abdomen and right lower quadrant. Patient became nauseous but did not have an episode of emesis until she was in the ED and had received Dilaudid. While in the ED, labs revealed a WBC count of 13.6. Afebrile. A CT of the abdomen and pelvis was obtained and demonstrated the diameter of the appendix increased from 5 mm in diameter of the study from 1 month prior to currently measuring 10 mm, raising concern for acute appendicitis. No surrounding inflammatory stranding to more specifically suggest this. Also noted was an acute to subacute T10 compression fracture with 20% anterior vertebral body height loss which is new since the study from 1 month prior. At this time, the general surgery team was consulted. Of note, patient was seen roughly a month ago as she was having left midback pain. A CT was performed and demonstrated no acute processes. Thoracic spine x-ray on 02/12 demonstrated no acute abnormalities. Abdominal MRI demonstrated no other abnormalities other than hemangiomas in the liver which were previously identified. Upon exam today, patient still complains of abdominal pain. She states that her back pain is decreased when she is lying. Patient denies any previous abdominal surgeries. She also states that she has not had a bowel movement since Monday, 4 days ago. She states that her stool has been very hard recently. Denies urinary symptoms. WBC 17.8 today. [facility]LY [facility], [facility] Past Medical History Medical History Benign head tremor Essential hypertension Hemorrhoids Surgical History Surgical History History of left knee replacement (~06/2023) No significant past surgical history Family History Family History Sibling DVT (deep venous thrombosis) Acute myocardial infarction Father DVT (deep venous thrombosis) Acute myocardial infarction Mother Lung cancer Social History Social History Smoking status: Never smoker Second hand tobacco smoke exposure: No Alcohol intake: current Drinks per week: 1 Alcohol use details: rarely Substance use: never Substance use type: does not use Lack of Transportation: No Lack of Food: Never True Current Housing: I Have Housing Concerned About Future Housing: No Difficulty Paying Gas/Electric Bills: No Difficulty Paying for Meds: No Currently Unemployed: No Education: Bachelor's Degree Difficulty w/ Childcare or Family Care: No Living arrangements: with family Spiritual care concerns: No Meds Home Medications and Allergies Home Medications ?Medication ?Instructions ?Recorded ?Confirmed ?Type valacyclovir 500 mg tablet 500 mg PO HS 05/03/19 03/06/25 History cholecalciferol (vitamin D3) 50 50 mcg PO HS 11/11/20 03/06/25 History mcg (2,000 unit) capsule lisinopril 10 mg tablet 10 mg PO HS 03/06/25 03/06/25 History Allergies Allergy/AdvReac Type Severity Reaction Status Date / Time No Known Allergies Allergy Unknown Verified 03/06/25 22:58 Vital Signs Vital Signs - 24 hr 03/06/25 17:45 03/06/25 20:33 03/06/25 22:26 Temperature 97.7 F Pulse Rate 75 81 86 Respiratory Rate 18 15 18 Blood Pressure 139/60 134/77 130/82 Pulse Oximetry 99 93 95 Oxygen Delivery Room Air 03/06/25 22:30 03/07/25 01:04 03/07/25 06:00 Temperature 98.5 F Pulse Rate 86 95 Respiratory Rate 18 16 Blood Pressure 130/82 119/53 L Pulse Oximetry 95 100 Oxygen Delivery Room Air Exam Const: General: comfortable and no acute distress Eyes: General: appearance normal, both eyes and all related structures Neck: Neck: supple Resp: Effort & Inspection: normal respiratory effort Cardio: Rate: regular rate GI: Inspection: distended GI Palp: Yes Soft to palpation, Yes Tenderness to palpation present (GI) (Lower abdomen and right lower quadrant over McBurney's point.), No Guarding due to palpation present (GI) and No Hernia present Auscultation: abnormal bowel sounds (Hypoactive) Skin: General skin exam: normal color and no rashes or lesions noted Extrem: General: normal to inspection Psych: Mental Status: mental status grossly normal Results Labs 03/07/25 07:02 03/07/25 07:02 Labs: Short CBC 03/06/25 03/07/25 Range/Units 17:42 07:02 WBC 13.6 H 17.8 H (4.5-10.0) K/mm3 Hgb 12.7 10.9 L (12.0-15.0) g/dL Hct 39.4 33.8 L (37.0-47.0) % Plt Count 243 219 (150-375) k/mm3 BMP 03/06/25 03/07/25 17:42 07:02 Sodium 137 134 L Potassium 4.1 3.7 Chloride 102 101 Carbon Dioxide 27 26 BUN 16 10 D Creatinine 0.56 L 0.65 L Glucose 116 H 121 H Calcium 9.4 8.4 Cardiac Enzymes 03/06/25 Range/Units 17:42 Troponin I < 0.012 (0.000-0.034) ng/mL Liver Function 03/06/25 Range/Units 17:42 Total Bilirubin 0.4 (0.2-1.3) mg/dL AST 32 (14-36) U/L ALT 28 (6-35) U/L Alkaline Phosphatase 114 (38-126) U/L Albumin 4.3 (3.5-5.1) g/dL Urine 03/06/25 Range/Units 17:42 Urine Color Yellow (Yellow) Urine Appearance Clear (Clear) Urine pH 5.0 (5.0-9.0) Ur Specific [place] 1.015 (1.001-1.035) Urine Protein Negative (Negative) mg/dL Urine Glucose (UA) Negative (Negative) mg/dL
[2025-03-07] MEDS: ACETAMINOPHEN 500 MG TABLET 1000 MG PO (11:31)
--- NOTE | 2025-03-07 13:00 | WPDHPUPDATE1 ---
History and Physical Update Update Date/Time: 03/07/25 13:00 History and Physical has been reviewed, including an updated exam of the patient. There are NO changes in the patient's condition. Risks, benefits, and alternatives have been discussed and questions answered. Patient agrees to proceed with procedure.
--- NOTE | 2025-03-07 13:36 | WPDANESEPPF ---
Anes - Initial Pre Proc Eval Procedure: Operation Date: 03/07/25 14:00 Proposed Procedures p Laparoscopic Appendectomy - Antione Ospina MD Date/Time: 03/07/25 13:36 Surgeon: Bhavesh Pre Op Diagnosis: Appendicitis Patient Data Age: 69 Gender: F Height: 1.68 m Weight: 73.6 kg Last Vital Signs Temp 36.9 C 03/07/25 06:00 Pulse 95 03/07/25 06:00 Resp 16 03/07/25 06:00 BP 119/53 L 03/07/25 06:00 Pulse Ox 96 03/07/25 11:27 O2 Del Method Room Air 03/07/25 11:27 Allergies Allergy/AdvReac Type Severity Reaction Status Date / Time No Known Allergies Allergy Unknown Verified 03/28/25 11:03 Home Medications ?Medication ?Instructions ?Recorded ?Confirmed ?Type valacyclovir 500 mg tablet 500 mg PO HS 05/03/19 03/28/25 History lisinopril 10 mg tablet 10 mg PO HS 03/06/25 03/28/25 History Laboratory Tests 03/06/25 03/07/25 17:42 07:02 WBC 13.6 H K/mm3 17.8 H K/mm3 (4.5-10.0) (4.5-10.0) RBC 4.28 M/mm3 3.65 L M/mm3 (4.2-5.4) (4.2-5.4) Hgb 12.7 g/dL 10.9 L g/dL (12.0-15.0) (12.0-15.0) Hct 39.4 % 33.8 L % (37.0-47.0) (37.0-47.0) MCV 92.1 fl 92.6 fl (80-100) (80-100) MCH 29.7 pg 29.9 pg (26-34) (26-34) MCHC 32.2 g/dl 32.2 g/dl (32-36) (32-36) RDW 13.0 % 13.0 % (11.5-14.5) (11.5-14.5) Plt Count 243 k/mm3 219 k/mm3 (150-375) (150-375) MPV 10.7 H fl 10.2 fl (7.4-10.4) (7.4-10.4) Immature Gran % (Auto) 0.3 % 0.7 H % (0-0.5) (0-0.5) Neut % (Auto) 77.4 H % 86.5 H % (45.5-73.1) (45.5-73.1) Lymph % (Auto) 16.1 L % 6.4 L % (18.3-44.2) (18.3-44.2) [place] % (Auto) 4.8 % 6.2 % (2.6-8.5) (2.6-8.5) Eos % (Auto) 1.2 % 0.0 % (0-4.4) (0-4.4) Baso % (Auto) 0.2 % 0.2 % (0.2-1.2) (0.2-1.2) Lymph # (Auto) 2.19 K/mm3 1.13 K/mm3 (0.9-3.2) (0.9-3.2) [place] # (Auto) 0.7 H K/mm3 1.1 H K/mm3 (0.1-0.6) (0.1-0.6) Eos # (Auto) 0.2 K/mm3 0.0 K/mm3 (0-0.3) (0-0.3) Baso # (Auto) 0.0 K/mm3 0.0 K/mm3 (0.0-0.1) (0.0-0.1) Abs Immat Gran (auto) 0.04 H K/mm3 0.13 H K/mm3 (0.00-0.031) (0.00-0.031) Absolute Neuts (auto) 10.6 H K/mm3 15.4 H K/mm3 (1.3-6.7) (1.3-6.7) Absolute Nucleated RBC 0.000 K/mm3 0.000 K/mm3 (0.0-0.012) (0.0-0.012) Nucleated RBC % 0.0 % 0.0 % (0.0-0.2) (0.0-0.2) Sodium 137 mmol/L 134 L mmol/L (137-145) (137-145) Potassium 4.1 mmol/L 3.7 mmol/L (3.4-5.0) (3.4-5.0) Chloride 102 mmol/L 101 mmol/L (98-107) (98-107) Carbon Dioxide 27 mmol/L 26 mmol/L (22-30) (22-30) Anion Gap 8 mmol/L 7 mmol/L (4-12) (4-12) BUN 16 mg/dL 10 D mg/dL (7-17) (7-17) Creatinine 0.56 L mg/dL 0.65 L mg/dL (0.7-1.0) (0.7-1.0) Estim Creat Clear Calc 76 ml/min 66 ml/min Estimated GFR > 60 > 60 (59 - ) (59 - ) Glucose 116 H mg/dL 121 H mg/dL (65-110) (65-110) Lactic Acid 1.3 mmol/L (0.7-2.0) Calcium 9.4 mg/dL 8.4 mg/dL (8.4-10.2) (8.4-10.2) Magnesium 1.7 mg/dL 1.8 mg/dL (1.6-2.3) (1.6-2.3) Total Bilirubin 0.4 mg/dL (0.2-1.3) AST 32 U/L (14-36) ALT 28 U/L (6-35) Alkaline Phosphatase 114 U/L (38-126) Troponin I < 0.012 ng/mL (0.000-0.034) C-Reactive Protein < 0.5 mg/dL (<1.0) Total Protein 7.6 g/dL (6.3-8.2) Albumin 4.3 g/dL (3.5-5.1) Lipase 155 U/L (23-300) Urine Color Yellow (Yellow) Urine Appearance Clear (Clear) Urine pH 5.0 (5.0-9.0) Ur Specific [place] 1.015 (1.001-1.035) Urine Protein Negative mg/dL (Negative) Urine Glucose (UA) Negative mg/dL (Negative) Urine Ketones Trace H mg/dL (Negative) Ur Blood (Man) Negative (Negative) Urine Nitrate Negative (Negative) Urine Bilirubin Negative (Negative) Urine Urobilinogen 0.2 mg/dL (<2.0) Leukocyte Esterase Rfl Trace H STEPHANIE/UL (Negative) Urine RBC 0-2 /hpf (0-2) Urine WBC 0-5 /hpf (0-3) Ur Squamous Epith Cells None seen /hpf (Few) Urine Bacteria None seen /hpf Urine Casts 0-2 Patient hx anesthesia problems: none Family hx anesthesia problems: none Results Review: All pre-operative results and documents have been reviewed as part of the pre-operative evaluation. [facility] Past Medical History Medical History Compression fracture of vertebrae Essential hypertension Hemorrhoids Surgical History Surgical History Acute appendicitis Laparoscopic appendectomy 03/12/25 Dr. Antione Ospina MD History of left knee replacement (~06/2023) No significant past surgical history Family History Family History Sibling DVT (deep venous thrombosis) Acute myocardial infarction Father DVT (deep venous thrombosis) Acute myocardial infarction Mother Lung cancer Social History Social History Smoking status: Never smoker Second hand tobacco smoke exposure: No Alcohol intake: current Drinks per week: 1 Alcohol use details: rarely Substance use: never Substance use type: does not use Lack of Transportation: No Lack of Food: Never True Current Housing: I Have Housing Concerned About Future Housing: No Difficulty Paying Gas/Electric Bills: No Difficulty Paying for Meds: No Currently Unemployed: No Education: Bachelor's Degree Difficulty w/ Childcare or Family Care: No Living arrangements: with family Spiritual care concerns: No Anes - Eval Final PreProcedure Day of Procedure 03/07/25 13:36 Patient weight: overweight Heart: regular rate and rhythm Lungs: clear to auscultation Airway: Mallampati scale class II Neurological: alert and oriented Last oral intake: >/= 8 hours ASA classification: II Emergent: no Anesthetic plan: proceed Anesthesia type and monitoring: general GIVS and standard monitoring Results Review: All pre-operative results and documents have been reviewed as part of the pre-operative evaluation. Informed Consent: The patient's anesthetic plan and its attendant risks and benefits were discussed with the patient/family/POA. Questions were solicited and answers provided to the satisfaction of the patient/family/POA.
[2025-03-07] MEDS: KETOROLAC 15 MG/ML VIAL (*BKC) IV PUSH (13:40)
[2025-03-07] MEDS: LACTATED RINGERS 1,000 ML 30 ML IV CONT (13:45)
[2025-03-07] MEDS: LIDO 1%/EPINEPHRINE 1:100,000 20 ML VIAL 30 ML INFILTRATE (14:49)
[2025-03-07] MEDS: BUPivacaine HCL 0.5% 10 ML AMP 30 ML INFILTRATE (14:50)
--- NOTE | 2025-03-07 14:56 | S_PTH ---
PATIENT: Arianna Hillman LOC: [id number] U#:[id number] AGE/SX: 69/F ROOM: 320 RE03/07/[address]: Sadia Villalta APRN : 1955 BED: 01 DIS: 03/09/2025 SPEC #: [id number] RECD: 03/10/25 09:04 STATUS: LEANDER REJabari #: [id number] TERE: 03/07/25 14:[address]: Antione Ospina DEPT: [facility] Surgical RECD BY: Leonarda Gamboa ENTERED: 03/10/25 09:04 SP TYPE: Surgical OTHR DR: MARCIA Casarez PA-C Nath Chongsuwat, MD Pei Chang Chung, MD Brendan M. Fong, MD Evelyne Thomas, NEERU Tissues: A - Appendix Procedures: Hematoxylin and Eosin Stain Gross and Microscopic Level 3
--- NOTE | 2025-03-07 15:31 | P.OP_ITS ---
Procedure Note - Detailed Date of Procedure 03/07/25 Pre-op Diagnosis Acute appendicitis, appendicolith Post-op Diagnosis Other ( Gangrenous appendicitis without abscess or fecal contamination) Procedure Performed Laparoscopic appendectomy Surgeon Antione Ospina MD [employer] Shubham Go SA Anesthesia General Indications patient is a 69-year-old female who presented with a couple day history of worsening mid upper abdominal pain which then localized to the right lower quadrant the abdomen. [place] [id number] on presentation to the emergency room last evening. CT scan abdomen pelvis was performed showing a acutely inflamed appendix with an appendicolith within the midportion of the appendix. There is no periappendiceal abscess and no obvious evidence of perforation. She presents now for emergent laparoscopic appendectomy. Findings The appendix was gangrenous but not perforated. There is no spillage of any stool contents in the abdomen. There is no periappendiceal abscess. The gangrenous changes extended almost up to the appendiceal base but the base was viable. Description of Procedure After informed consent was obtained patient brought to the operating room she was placed supine position and general endotracheal anesthesia was administered. The abdomen was prepped and draped in usual sterile fashion after placement of a Sol catheter to decompress the bladder. Time-out was then performed correctly identifying the patient as well as procedure to be performed. She was already on scheduled IV antibiotics. I then proceeded into the abdomen left upper quadrant utilizing a 5mm Optiview port. Once inside the abdomen insufflated to adequate pneumoperitoneum of 15mmHg of CO2. I then placed a 5mm suprapubic trocar port, a 5mm right lower quadrant trocar port, and a 12mm periumbilical trocar port all under direct visualization. The laparoscopic was then placed in the suprapubic trocar port and then visualizing the right lower quadrant I could see the appendix which was acutely inflamed with gangrenous changes extending up to near the base of the appendix but base at the cecum was viable. There was no perforation of the appendix. No gross spillage of any enteric contents or periappendiceal abscess. There was fibrinous exudate around the appendix and onto a portion of the right fallopian tube. No pelvic abscess was seen. I then proceeded to grasp the appendix in its midportion and then make a defect through the mesoappendix at the base with a [place] dissector. I then proceeded to divide the appendix with a 45mm Endo-TYE stapler flush with the cecum. I then used a vascular reload to the Endo-TYE stapler to divide the mesoappendix. The appendix was then placed into an Endo-Catch bag and brought out through the periumbilical trocar port site. The appendix was passed off table sent to pathology for examination. I then irrigated out the right lower quadrant the abdomen and the pelvis with sterile saline solution. I aspirated the fluid to a ran clear. There is no bleeding from the staple lines. I then removed all the trocar ports under direct visualization all port sites appeared hemostatic. The abdomen was allowed to decompress. The 12mm periumbilical trocar port fascial defect was then closed utilizing 0 Vicryl suture at the fascial level. The skin edges in all the port sites were then approximated utilizing a running subcuticular 4-0 Monocryl suture. The incisions were then cleaned the skin glue was applied. The Sol catheter was removed at the end the procedure. The patient tolerated the procedure well no complications. All sponges, needles, and instrument counts were correct at the end procedure. EBL was _15__cc. The patient was awakened and taken to recovery in stable and satisfactory condition. Implants None Estimated Blood Loss 15 Urine Output 300 Drains No Packing No Pathology Yes ( appendix to pathology) Complications No immediate complications Condition Stable Disposition PACU [facility] Billing Surgery - Charge Forward: Surgery Billing
[2025-03-07] MEDS: CHOLECALCIFEROL (VITAMIN D3) 25 MCG (1,000 UNITS) TABLET 50 MCG PO (21:13)
[2025-03-08 03:15] VITALS: BP 110/60; PULSE 87; RESP 16; TEMP 37.2; O2SAT 91
[2025-03-08] MEDS: PIPERACILLIN/TAZOBACTAM SOD 3.375 GM in SODIUM CHLORIDE 0.9% IV 50 ML 100 ML IVPB ×4 (05:56→23:03)
[2025-03-08 06:19] LABS: Hematocrit 29.8 % (37.0-47.0); Hemoglobin 9.5 g/dL (12.0-15.0); Mean Corpuscular HGB Conc 31.9 g/dl (32-36); Mean Corpuscular Hemoglobin 30.1 pg (26-34); Mean Corpuscular Volume 94.3 fl (80-100); Platelet Count Result 171 k/mm3 (150-375); Red Blood Count 3.16 M/mm3 (4.2-5.4); White Blood Count 11.3 K/mm3 (4.5-10.0)
[2025-03-08 06:53] LABS: Anion Gap 1 mmol/L (4-12); Blood Urea Nitrogen 13 mg/dL (7-17); Calcium 7.9 mg/dL (8.4-10.2); Carbon Dioxide 27 mmol/L (22-30); Chloride 105 mmol/L (98-107); Estimated CRCL calculation 62 ml/min; Estimated Glomerular Filt Rate > 60; Glucose 96 mg/dL (65-110); Potassium 3.8 mmol/L (3.4-5.0); Sodium 133 mmol/L (137-145)
--- NOTE | 2025-03-08 08:46 | P.PNIM_ITS ---
Progress Note: A&P Assessment and Plan (1) Acute appendicitis: Qualifiers: Acute appendicitis type: unspecified acute appendicitis type Qualified Code(s): K35.80 - Unspecified acute appendicitis Code(s): K35.80 - Unspecified acute appendicitis Status: Acute Assessment and Plan: S/p appendectomy 03/[address] Ospina. Appendix was gangrenous but not perforated * Hasn't had a BM in close to a week. Started Miralax TID x2 days, Senna BID. Avoiding suppositories and enemas until ok with surgery. Could consider golytely prep if not having results from above * Monitor serum electrolytes and CBC * Pain control: Tylenol, Oxycodone, Morphine prn. Did not take anything for pain overnight * Monitor vital signs, I and O's * Stop fluids since drinking well and no nausea * Continue Zosyn 3.375 mg every 6 hours * general surgery following, appreciate recommendations (2) Essential hypertension: Code(s): I10 - Essential (primary) hypertension Status: Acute Assessment and Plan: * Patient's blood pressure controlled * Continue home lisinopril 10mg daily (3) Compression fracture of T10 vertebra: Qualifiers: Encounter type: initial encounter Qualified Code(s): S22.070A - Wedge compression fracture of T9-T10 vertebra, initial encounter for closed fracture Code(s): S22.070A - Wedge compression fracture of T9-T10 vertebra, initial encounter for closed fracture Status: Acute Assessment and Plan: 03/06/25 Abdomen/pelvis CT: 1. Diameter of the appendix is increased from 5 mm in diameter on the study from one month prior to currently measuring 10 mm. This raises some concern for acute appendicitis although there is no surrounding inflammatory stranding to more specifically suggest this. 2. Acute to subacute T10 compression fracture with 20% anterior vertebral body height loss which is new since the study from one month prior. Neurosurgery consulted * Recommend follow-up with PCP regarding possible repeat bone density scan in evaluation of osteoporosis * May need bone health specialist * Has a TLSO brace--discuss with general surgery when ok to use since strap over abdomen * Follow-up with office in 6 weeks with repeat AP lateral lumbar spine x-rays Plan 69 year female with PMH hypertension presents to [facility] ER on 03/06/2025 complaining of right lower quadrant pain which started suddenly after eating around noon and associated with nausea and vomiting. Recent low back pain and found to have a new compression fracture. She has never had any abdominal surgeries. s/p laparascopic appendectomy 03/[address] Ospina Time Spent With Patient Time: 57 minutes Subjective Date/time seen: 03/08/25 13:15 Interval history: VSS. Labs ok s/p appendectomy yesterday. Neurosurgery recommended TSLO brace. Reports there is a strap over abdomen. Planning to clarify with surgery if TLSO is ok to use now Abdominal incision sites are clean, no evidence of infection Reports constipation for a week, last BM Friday 03/02. Eating well and no nausea. Start Heparin for DVT prophylaxis Review of Systems Review of Systems: All systems reviewed & are unremarkable except as noted in HPI and below (Subjective) Exam Narrative: General - Awake and alert. No acute distress Eyes - PERRLA, EOM intact ENT - No thrush, No erythema Neck - No noticeable or palpable swelling Lymph Nodes - No lymphadenopathy Cardiovascular - RRR no m/r/g, no JVD Lungs: Clear to auscultation, No wheezing, use of accessory muscles, no crackles or wheezes. Skin - Skin warm and dry, no wounds or rashes Abdomen - Normal bowel sounds, abdomen soft and minimally tender. Incision sites well approximated, glued upper abdomen, umbilicus and low abdomen. No drainage or evidence of infection Extremities - No edema, cyanosis or clubbing Musculoskeletal - 5/5 strength, normal range of motion, no swollen or erythematous joints. Neurological ? Alert and oriented x 3, CN 2-12 grossly intact. Psych: Normal mood and affect Objective Data Vital Signs Vital Signs: Vital Signs - 24 hr 03/07/25 11:27 03/07/25 15:17 03/07/25 15:30 Temperature 97.0 F L Pulse Rate 69 65 Respiratory Rate 12 12 Blood Pressure 103/52 L 101/52 L Pulse Oximetry 96 100 100 Oxygen Delivery Room Air Simple Face Mask Simple Face Mask Oxygen Flow Rate 8 6 03/07/25 15:45 03/07/25 16:00 03/07/25 16:15 Temperature Pulse Rate 70 73 75 Respiratory Rate 12 14 14 Blood Pressure 101/50 L 102/50 L 101/50 L Pulse Oximetry 100 96 95 Oxygen Delivery Simple Face Mask Room Air Room Air Oxygen Flow Rate 6 03/07/25 16:30 03/07/25 17:07 03/07/25 17:22 Temperature 96.8 F L 97.1 F L Pulse Rate 75 68 67 Respiratory Rate 14 15 16 Blood Pressure 95/52 L 100/43 L 101/45 L Pulse Oximetry 95 97 100 Oxygen Delivery Room Air Oxygen Flow Rate 03/07/25 17:52 03/07/25 18:59 03/07/25 20:00 Temperature 97.3 F L 97.1 F L Pulse Rate 73 77 77 Respiratory Rate 18 16 16 Blood Pressure 100/58 L 101/51 L Pulse Oximetry 98 100 100 Oxygen Delivery Room Air Oxygen Flow Rate 03/07/25 23:15 03/08/25 03:15 Temperature 98.5 F 99.0 F Pulse Rate 82 87 Respiratory Rate 16 16 Blood Pressure 105/47 L 110/60 Pulse Oximetry 95 91 Oxygen Delivery Oxygen Flow Rate Intake/Output Intake/Output: Intake & Output 03/05/25 03/06/25 03/07/25 03/08/25 23:59 23:59 23:59 23:59 Intake Total 1050 2388.8 400 Output Total 600 Balance 1050 1788.8 400 Meds/Results Medications: Active Medications Generic Name Dose Route Start Last Admin Trade Name Freq PRN Reason Stop Dose Admin Acetaminophen 1,000 mg 03/07/25 15:18 Acetaminophen 500 Mg Tablet PO Q6H PRN Mild Pain (1-3) or Fever Hydrocodone Bitart/Acetaminophen 1 tab 03/07/25 15:18 Hydrocodone/Acetaminophen (*Crx) 5-325 Mg Tablet PO Q4H PRN Pain Rated 4-6 Piperacillin Sod/Tazobactam 50 mls @ 100 mls/hr 03/07/25 06:00 03/08/25 05:56 Sod 3.375 gm/ Sodium Chloride IVPB 100 mls/hr Q6H ASUNCION Administration Sodium Chloride 1,000 mls @ 125 mls/hr 03/06/25 21:15 03/07/25 23:12 Normal Saline Iv IV CONT 125 mls/hr .Q8H ASUNCION Administration Lisinopril 10 mg 03/07/25 21:00 03/07/25 21:13 Lisinopril 10 Mg Tablet PO Not Given HS ASUNCION Morphine Sulfate 4 mg 03/07/25 15:18 Morphine Sulfate (*Crx) 4 Mg/Ml Inj IV PUSH Q4H PRN Pain Rated 7-10 Ondansetron HCl 4 mg 03/06/25 21:11 03/07/25 00:15 Ondansetron Inj 4 Mg/2 Ml Vial IV PUSH 4 mg Q4H PRN Administration Nausea Oxycodone HCl 5 mg 03/07/25 15:18 Oxycodone Hcl (*Crx) 5 Mg Tab Ir PO Q6H PRN Pain Rated 7-10 Valacyclovir HCl 500 mg 03/07/25 21:00 03/07/25 21:13 Valacyclovir Hcl 500 Mg Tablet PO 500 mg HS ASUNCION Administration Vitamin D 50 mcg 03/07/25 21:00 03/07/25 21:13 Cholecalciferol (Vitamin D3) 25 Mcg (1,000 Units) Tablet PO 50 mcg HS ASUNCION Administration Radiology Results: ITS Impressions Abdomen/Pelvis CT 03/06/25 19:31 IMPRESSION: 1. Diameter of the appendix is increased from 5 mm in diameter on the study from one month prior to currently measuring 10 mm. This raises some concern for acute appendicitis although there is no surrounding inflammatory stranding to more specifically suggest this. 2. Acute to subacute T10 compression fracture with 20% anterior vertebral body height loss which is new since the study from one month prior. Chest X-Ray 03/07/25 08:51 IMPRESSION: 1. No acute cardiopulmonary findings given portable technique. Labs Labs: Laboratory Results - last 24 hr 03/08/25 06:09 WBC 11.3 H RBC 3.16 L Hgb 9.5 L Hct 29.8 L MCV 94.3 MCH 30.1 MCHC 31.9 L RDW 13.3 Plt Count 171 MPV 10.3 Sodium 133 L Potassium 3.8 Chloride 105 Carbon Dioxide 27 Anion Gap 1 L BUN 13 Creatinine 0.70 Estim Creat Clear Calc 62 Estimated GFR > 60 Glucose 96 Calcium 7.9 L Quality VTE Prophylaxis VTE prophylaxis: mechanical ordered Hospitalist MIPS Advance Care Plan I have confirmed that the patient's Advanced Care Plan is present, code status is documented, or surrogate decision maker is listed in patient medical record.: Yes Medication Reconciliation I have utilized all available resources to obtain, update and review the patients current medications (includes all prescriptions, OTC, herbals, cannabis, and nutritional supplements).: Yes
[2025-03-08 09:00] VITALS: BP 105/51; PULSE 85; RESP 18; TEMP 35.6; O2SAT 95
[2025-03-08] MEDS: ACETAMINOPHEN 500 MG TABLET 1000 MG PO ×2 (14:35→21:14)
[2025-03-08 15:12] VITALS: BP 131/57; PULSE 84; RESP 16; TEMP 36.7; O2SAT 96
--- NOTE | 2025-03-08 15:12 | P.PNGS_ITS ---
Progress Note: A&P Assessment and Plan (1) Acute appendicitis: Qualifiers: Acute appendicitis type: unspecified acute appendicitis type Qualified Code(s): K35.80 - Unspecified acute appendicitis Code(s): K35.80 - Unspecified acute appendicitis Status: Acute Assessment and Plan: * Doing well after surgery yesterday. OK to discharge from surgical standpoint. * F/u with Dr. Ospina in 2 weeks. (2) Compression fracture of T10 vertebra: Qualifiers: Encounter type: initial encounter Qualified Code(s): S22.070A - Wedge compression fracture of T9-T10 vertebra, initial encounter for closed fracture Code(s): S22.070A - Wedge compression fracture of T9-T10 vertebra, initial encounter for closed fracture Status: Acute Assessment and Plan: * TLSO brace ok to use with recent abdominal surgery. May remove as needed for discomfort or while resting. Subjective Subjective Date/Time Seen: 03/08/25 15:12 Interval history: Doing well on POD#1. Tolerating diet. Pain controlled. Exam GI: Inspection: non-distended and incision (intact with glue) GI Palp: Yes Soft to palpation, Yes Tenderness to palpation present (GI) (incisional) and No Guarding due to palpation present (GI) Objective Data Vital Signs Vital Signs: Vital Signs - 24 hr 03/07/25 15:17 03/07/25 15:30 03/07/25 15:45 Temperature 97.0 F L Pulse Rate 69 65 70 Respiratory Rate 12 12 12 Blood Pressure 103/52 L 101/52 L 101/50 L Pulse Oximetry 100 100 100 Oxygen Delivery Simple Face Mask Simple Face Mask Simple Face Mask Oxygen Flow Rate 8 6 6 03/07/25 16:00 03/07/25 16:15 03/07/25 16:30 Temperature Pulse Rate 73 75 75 Respiratory Rate 14 14 14 Blood Pressure 102/50 L 101/50 L 95/52 L Pulse Oximetry 96 95 95 Oxygen Delivery Room Air Room Air Room Air Oxygen Flow Rate 03/07/25 17:07 03/07/25 17:22 03/07/25 17:52 Temperature 96.8 F L 97.1 F L 97.3 F L Pulse Rate 68 67 73 Respiratory Rate 15 16 18 Blood Pressure 100/43 L 101/45 L 100/58 L Pulse Oximetry 97 100 98 Oxygen Delivery Oxygen Flow Rate 03/07/25 18:59 03/07/25 20:00 03/07/25 23:15 Temperature 97.1 F L 98.5 F Pulse Rate 77 77 82 Respiratory Rate 16 16 16 Blood Pressure 101/51 L 105/47 L Pulse Oximetry 100 100 95 Oxygen Delivery Room Air Oxygen Flow Rate 03/08/25 03:15 03/08/25 09:00 Temperature 99.0 F 96.1 F L Pulse Rate 87 85 Respiratory Rate 16 18 Blood Pressure 110/60 105/51 L Pulse Oximetry 91 95 Oxygen Delivery Oxygen Flow Rate Intake/Output Intake/Output: Intake & Output 03/05/25 03/06/25 03/07/25 03/08/25 23:59 23:59 23:59 23:59 Intake Total 1050 2388.8 1860 Output Total 600 Balance 1050 1788.8 1860 Meds/Results Medications: Active Medications Generic Name Dose Route Start Last Admin Trade Name Freq PRN Reason Stop Dose Admin Acetaminophen 1,000 mg 03/07/25 15:18 03/08/25 14:35 Acetaminophen 500 Mg Tablet PO 1,000 mg Q6H PRN Administration Mild Pain (1-3) or Fever Hydrocodone Bitart/Acetaminophen 1 tab 03/07/25 15:18 Hydrocodone/Acetaminophen (*Crx) 5-325 Mg Tablet PO Q4H PRN Pain Rated 4-6 Heparin Sodium (Porcine) 5,000 units 03/08/25 14:00 03/08/25 14:34 Heparin Sodium 5,000 Units/Ml Vial SUB-Q 5,000 units Q8HR ASUNCION Administration Piperacillin Sod/Tazobactam 50 mls @ 100 mls/hr 03/07/25 06:00 03/08/25 13:36 Sod 3.375 gm/ Sodium Chloride IVPB Infused Q6H ASUNCION Infusion Lisinopril 10 mg 03/07/25 21:00 03/07/25 21:13 Lisinopril 10 Mg Tablet PO Not Given HS ASUNCION Morphine Sulfate 4 mg 03/07/25 15:18 Morphine Sulfate (*Crx) 4 Mg/Ml Inj IV PUSH Q4H PRN Pain Rated 7-10 Ondansetron HCl 4 mg 03/06/25 21:11 03/07/25 00:15 Ondansetron Inj 4 Mg/2 Ml Vial IV PUSH 4 mg Q4H PRN Administration Nausea Oxycodone HCl 5 mg 03/07/25 15:18 Oxycodone Hcl (*Crx) 5 Mg Tab Ir PO Q6H PRN Pain Rated 7-10 Polyethylene Glycol 17 gm 03/08/25 17:00 Polyethylene Glycol 3350 17 Gm Powd.Pack PO 03/10/25 16:59 TID ASUNCION Senna/Docusate Sodium 2 tab 03/08/25 17:00 Senna/Docusate Sodium Tablet PO BID ASUNCION Valacyclovir HCl 500 mg 03/07/25 21:00 03/07/25 21:13 Valacyclovir Hcl 500 Mg Tablet PO 500 mg HS ASUNCION Administration Vitamin D 50 mcg 03/07/25 21:00 03/07/25 21:13 Cholecalciferol (Vitamin D3) 25 Mcg (1,000 Units) Tablet PO 50 mcg HS ASUNCION Administration Radiology Results: ITS Impressions Abdomen/Pelvis CT 03/06/25 19:31 IMPRESSION: 1. Diameter of the appendix is increased from 5 mm in diameter on the study from one month prior to currently measuring 10 mm. This raises some concern for acute appendicitis although there is no surrounding inflammatory stranding to more specifically suggest this. 2. Acute to subacute T10 compression fracture with 20% anterior vertebral body height loss which is new since the study from one month prior. Chest X-Ray 03/07/25 08:51 IMPRESSION: 1. No acute cardiopulmonary findings given portable technique. Labs Labs: Laboratory Results - last 24 hr 03/08/25 06:09 WBC 11.3 H RBC 3.16 L Hgb 9.5 L Hct 29.8 L MCV 94.3 MCH 30.1 MCHC 31.9 L RDW 13.3 Plt Count 171 MPV 10.3 Sodium 133 L Potassium 3.8 Chloride 105 Carbon Dioxide 27 Anion Gap 1 L BUN 13 Creatinine 0.70 Estim Creat Clear Calc 62 Estimated GFR > 60 Glucose 96 Calcium 7.9 L
[2025-03-08] MEDS: SENNA/DOCUSATE SODIUM TABLET 2 TAB PO (17:29)
[2025-03-08] MEDS: CHOLECALCIFEROL (VITAMIN D3) 25 MCG (1,000 UNITS) TABLET 50 MCG PO (20:51)
[2025-03-08 21:33] VITALS: O2SAT 96
[2025-03-08 22:00] VITALS: BP 126/56; PULSE 75; RESP 18; TEMP 37; O2SAT 96
[2025-03-09] MEDS: PIPERACILLIN/TAZOBACTAM SOD 3.375 GM in SODIUM CHLORIDE 0.9% IV 50 ML 100 ML IVPB ×2 (05:18→11:22)
[2025-03-09 06:00] VITALS: BP 134/57; PULSE 72; RESP 18; TEMP 36.9; O2SAT 95
[2025-03-09] MEDS: SENNA/DOCUSATE SODIUM TABLET 2 TAB PO (08:41)
[2025-03-09] MEDS: ACETAMINOPHEN 500 MG TABLET 1000 MG PO (08:41)
--- NOTE | 2025-03-09 12:52 | P.DS_ITS ---
DS: Admitting Diagnosis Discharge Date 03/09/2025 Admitting Diagnosis Acute appendicitis DS: Discharge Diagnosis Discharge Diagnosis (1) Acute appendicitis with perforation and generalized peritonitis, without abscess or gangrene: Code(s): K35.201 - Acute appendicitis with generalized peritonitis, with perforation, without abscess Status: Acute DS: Summary Hospital Course Reason for hospitalization: Copied from [facility] 03/06 Right lower quadrant abdominal pain, nausea and vomiting Narrative: 69 year female with PMH hypertension presents to [facility] ER on 03/06/2025 complaining of right lower quadrant pain which started suddenly after eating around noon and associated with nausea and vomiting. She has never had any abdominal surgeries. Denies diarrhea, shortness of breath, chest pain, fever. She presented to [facility] ER 02/03/2025 with lower back pain. She did not have a fall or trauma. At that time she was discharged after CT abdomen pelvis without acute findings. Since then she has been doing physical therapy as prescribed by her PCP. Her pain has been persistent. On this repeat occasion she had a abdomen pelvis CT with contrast was demonstrates the following: IMPRESSION: 1. Diameter of the appendix is increased from 5 mm in diameter on the study from one month prior to currently measuring 10 mm. This raises some concern for acute appendicitis although there is no surrounding inflammatory stranding to more specifically suggest this. 2. Acute to subacute T10 compression fracture with 20% anterior vertebral body height loss which is new since the study from one month prior. General surgery and Neurosurgery were both contacted from the ER, agreed to consult upon admission. Patient was given Zofran, fentanyl 50 mcg IV push x1, Protonix, 1 L normal saline bolus, Zosyn 3.37 g IV x1. He was resting comfortably thereafter. Hospital Course: Acute appendicitis: S/p appendectomy 03/[address] Ospina. Appendix was gangrenous but not perforated * Hasn't had a BM in close to a week. Started Miralax TID x2 days, Senna BID. Avoiding suppositories and enemas until ok with surgery. Could consider golytely prep if not having results from above * Monitor serum electrolytes and CBC * Pain control: Tylenol, Oxycodone, Morphine prn. Did not take anything for pain overnight * Monitor vital signs, I and O's * Stop fluids since drinking well and no nausea * Continue Zosyn 3.375 mg every 6 hours--continue Augmentin for 3 more days (4 day total course) since gangrenous appendicitis. Noninfected appearing per operative summary * follow up with general surgery Essential hypertension: * Patient's blood pressure controlled * Continue home lisinopril 10mg daily Compression fracture of T10 vertebra: Wedge compression fracture of T9-T10 vertebra, initial encounter for closed fracture 03/06/25 Abdomen/pelvis CT: 1. Diameter of the appendix is increased from 5 mm in diameter on the study from one month prior to currently measuring 10 mm. This raises some concern for acute appendicitis although there is no surrounding inflammatory stranding to more specifically suggest this. 2. Acute to subacute T10 compression fracture with 20% anterior vertebral body height loss which is new since the study from one month prior. Neurosurgery consulted * Recommended follow-up with PCP regarding possible repeat bone density scan in evaluation of osteoporosis * May need bone health specialist * Has a TLSO brace-- * Follow-up with office in 6 weeks with repeat AP lateral lumbar spine x-rays Status at Discharge Cognitive/behavioral status at discharge: A&Ox4 Time Spent with Patient Time attestation: Total time spent providing and/or coordinating discharge services: 50 Exam Narrative: General - Awake and alert. No acute distress Eyes - PERRLA, EOM intact ENT - No thrush, No erythema Neck - No noticeable or palpable swelling Lymph Nodes - No lymphadenopathy Cardiovascular - RRR no m/r/g, no JVD Lungs: Clear to auscultation, No wheezing, use of accessory muscles, no crackles or wheezes. Skin - Skin warm and dry, no wounds or rashes Abdomen - Normal bowel sounds, abdomen soft and minimally tender. Incision sites well approximated, glued upper abdomen, umbilicus and low abdomen. No drainage or evidence of infection Extremities - No edema, cyanosis or clubbing Musculoskeletal - 5/5 strength, normal range of motion, no swollen or erythematous joints. Neurological ? Alert and oriented x 3, CN 2-12 grossly intact. Psych: Normal mood and affect DS: Data Data Completed and Pending Pending studies at discharge: Pending at discharge 03/07/25 14:56 Surgical [PTH] Routine Discharge Plan Discharge Attending physician on discharge: Sadia Villalta Consulting providers: Nilson Humphries; Mark Epperson; Antione Ospina; Irais Casas; Bronwyn Nash; Josias Ceballos; Tor Jacobo; Jae Guzmán; Darius Dominique; Suhail Whitley Discharging Clinician: Sadia Villalta Anticipated Discharge Date/Time: 03/09/25 12:31 Patient Disposition: Home Activity: other - see discharge instructions Diet: regular Wound Care Instructions: other - see discharge instructions Discharge Instructions: Follow up with Dr. Ospina in the office in 2 weeks. Patient to call [phone] for an appointment. May shower in 24hours but do not soak incisions under water for 2 weeks. No lifting more than 10 to 15 lb for 2 weeks[address] No driving for at least 3 days or until no longer taking any narcotic pain medication. Resume all home medications. You may use Tylenol and/or ibuprofen in addition to or in place of narcotic pain medications for postoperative pain. TLSO brace ok to use with recent abdominal surgery. May remove as needed for discomfort or while resting. Patient Instructions: Antibiotic Form Patient Language: Greek Stand Alone Forms: General Discharge Information Follow-up/Referrals: Antione Ospina MD [Physician, General Surgery] - Call for Appointment Discharge Medications: Continued valacyclovir 500 mg tablet 500 mg PO HS lisinopril 10 mg tablet 10 mg PO HS Date of admission: 03/07/25 16:30 Primary Care Provider: Fabiola Braden Admitting Provider: Jessica Robles Attending physician on admission: Sadia Villalta Condition: Stable Quality VTE Prophylaxis VTE prophylaxis: pharmacologic ordered Hospitalist MIPS Heart Failure (Exclusion) Patient has history of Heart Transplant or Left Ventricular Assistive Device?: No IF YES, STOP HERE Heart Failure (Qualifier) Patient has current or prior documentation of LVEF less than or equal to 40%, or mod/servere depressed LVSF?: No IF NO, STOP HERE
== END 2025-03-09 13:28 | disposition home or self-care (01) | DRG 398 ==
LOC: ANHED 21:10 → ANH3MEDSUR 22:09
PROVIDERS: Nurse Practitioner Family; Surgery; Admitting Provider General Practice; Emergency Provider Student in an Organized Health Care Education/Training Program; PCP Student in an Organized Health Care Education/Training Program; Visit Provider Nurse Practitioner Acute Care
PROC: 0DTJ4ZZ Resection of Appendix, Percutaneous Endoscopic Approach (ICD-10-PCS; CPT 44970; principal; 2025-03-07 14:00)
DX: K35.891 Other acute appendicitis without perforation, with gangrene (principal); M48.54XA Collapsed vertebra, not elsewhere classified, thoracic region, initial encounter for fracture; M85.88 Other specified disorders of bone density and structure, other site; I10 Essential (primary) hypertension; Z96.652 Presence of left artificial knee joint
CPT/HCPCS: 36415; 71045; 74177; 80048; 80053; 81001; 83605; 83690; 83735; 84484; 85025; 85027; 86140; 87040; 88304; 93005; 96365; 96375; 96376; 99285; A9270; G0378; J1171; J1644; J1885; J2004; J2250; J2270; J2405; J2470; J2543; J2704; J3010; J7030; J7120; Q9967